=== PATIENT | male | born 1935 | race Caucasian/White ===

== ENCOUNTER 2017-05-13 18:30 | Inpatient (IN) | payer MEDICARE, OTHER ==
[~2017-05-13] VITALS: Ht 175.3 cm; Wt 71.9 kg
[~2017-05-13 18:30] MED LIST: ALFU10TA PO; AMIT75TA2 PO; DUTA0.5C2 PO; GABA100C PO; TOLT2CAP PO
[2017-05-13 18:41] VITALS: BP 122/54; PULSE 85; RESP 16; O2SAT 97
--- NOTE | 2017-05-13 18:41 | ED.REPORT ---
HPI-General Illness Date of Service May 13, 2017 ED Provider: Dr. Chad Camp The patient is a 82 year old male with a hx of dementia and frequent falls on Coumadin for pulmonary emboli who presents to the ED via EMS with bruising on his right chest. The patient's called EMS after waking up and noticing diffuse bruising and open sores on the pt's chest. His states that she is unsure if the pt fell. Pt is a poor historian and unable to give ROS or hx. Nursing Notes Stated Complaint: BRUISING,OPEN SORES Nursing Notes Reviewed: Yes Allergies: Coded Allergies: No Known Allergies (Verified , 06/07/14) Scheduled Alfuzosin ER (Uroxatral) 10 Mg Tab.sr.24h 10 MG PO DAILY Amitriptyline (Amitriptyline) 75 Mg Tablet 75 MG PO HS Gabapentin (Neurontin) 100 Mg Capsule 100 MG PO PM Tolterodine Tartrate ER (Detrol LA) 2 Mg Capsule 2 MG PO DAILY Scheduled PRN Dutasteride (Avodart) 0.5 Mg Capsule 0.5 MG PO DAILY PRN PRN prn General Time Seen by MD: 18:40 Chief Complaint Other (bruising) Hx Obtained From: EMS Arrived By: Ambulance Sudden in Onset?: Yes Onset Occurred: Yesterday Symptom Duration: Since onset Location: : Chest Quality: Painful Recent Healthcare: No recent doctor visit, No recent hospitalization Similar Sx Previous: No Past Medical History Past Medical History Recurrent, acute pulmonary embolus. Chronic atrial fibrillation. Labile hypertension. Progressive dementia. Prostatism. DNR/DNI. Past Surgical History right eye surgery (glaucoma) Reports: Inguinal hernia repair Smoking History Former Smoker Social History Alcohol Use: Denies alcohol use Drug Use: Denies drug use Other Social History: , Local resident Ambulatory Status Independent Review of Systems Unable to Obtain ROS Patient condition Physical Exam Vital Signs Vital Signs Date Time Temp Pulse Resp B/P Pulse Ox O2 Delivery O2 Flow Rate FiO2 05/13/17 21:24 36.5 79 18 160/74 98 Room Air 05/13/17 20:06 78 20 154/63 98 Room Air 05/13/17 18:41 36.8 85 16 122/54 97 Room Air Initial VS: Reviewed General/Constitutional: Awake, Alert confused as to why he is here Head / Eyes: Atraumatic, Normocephalic ENT: Atraumatic, Mucous membranes moist Diminished Breath Sounds: Positive: Decreased bilateral Cardiovascular: Heart rate NL, Regular rhythm Upper Extremities Upper Extremity / MS: Atraumatic, Inspection NL, Full range of motion, No deformity no signs of trauma Wrist / Hand: Atraumatic, Full range of motion, No deformity Lower Extremity / Pelvis / MS: Atraumatic, Inspection NL, Full range of motion , No deformity no signs of trauma Ankle / Foot: Atraumatic, Full range of motion, No deformity Color / Condition: Positive: Lesion present... Rash / Lesion Notes: ecchymosis 10 by 10 skin peeling, erythema of chest wall that is warm to touch Rash / Lesion Location: Positive: Chest Interpretation & Diagnostics Lab Results Interpretation Result Diagram: 05/13/175 05/13/175 Test 05/13/17 18:55 05/13/17 20:00 White Blood Count 7.6th/mm3 (3.8-10.1) Red Blood Count 5.05mil/mm3 (4.40-5.80) Hemoglobin 14.9g/dL (13.8-17.2) Hematocrit 43.9% (41.0-50.0) Mean Corpuscular Volume 86.9fL (81-100) Mean Corpuscular Hemoglobin 29.5pg (27.0-35.0) Mean Corpuscular Hemoglobin Concent 33.9% (32.0-37.0) Red Cell Distribution Width 14.2% (12.3-15.4) Platelet Count 69bil/L (150-400) Neutrophils (%) (Auto) 71.9% (40-74) Lymphocytes (%) (Auto) 15.9% (14-46) Monocytes (%) (Auto) 11.1% (4-12) Eosinophils (%) (Auto) 0.5% (0-5) Basophils (%) (Auto) 0.3% (0-3) Prothrombin Time 23.9sec (8.1-12.5) Prothromb Time International Ratio 2.20ratio Sodium Level 140mEq/L (134-144) Potassium Level 3.8mEq/L (3.5-5.2) Chloride Level 102mEq/L (97-108) Carbon Dioxide Level 24mmol/L (18-29) Blood Urea Nitrogen 19mg/dL (8-27) Creatinine 1.04mg/dL (0.76-1.27) Estimat Glomerular Filtration Rate 72mL/min (>59) Glucose Level 111mg/dL (60-99) Calcium Level 9.1mg/dL (8.5-10.1) Magnesium Level 1.9mg/dL (1.6-2.6) Total Bilirubin 1.0mg/dL (0.0-1.2) Aspartate Amino Transf (AST/SGOT) 51U/L (0-50) Alanine Aminotransferase (ALT/SGPT) 18U/L (0-44) Alkaline Phosphatase 90U/L (25-160) Total Protein 6.9g/dL (6.4-8.4) Albumin 3.5g/dL (3.4-5.0) Hold Banuelos Top Tube Received (Received) Urine Color Dark yellow (YELLOW) Urine Appearance Cloudy (CLEAR,HAZY) Urine pH 6.0 (5.0-8.0) Urine Specific [place] 1.010 (1.003-1.035) Urine Protein 30mg/dL (NEG,TRACE) Urine Glucose (UA) Negativemg/dL (NEGATIVE) Urine Ketones Negativemg/dL (NEGATIVE) Urine Occult Blood Large (NEGATIVE) Urine Nitrite Positive (NEGATIVE) Urine Bilirubin Negative (NEGATIVE) Urine Urobilinogen Normalmg/dL (NORMAL) Urine Leukocyte Esterase Large (NEGATIVE) Urine RBC 11-50/hpf (0-2) Urine WBC >50/hpf (0-5) Urine Epithelial Cells Occasional/hpf (NONE-MOD) Urine Crystals Amorphous urates (NONE Urine Bacteria Moderate/hpf (NONE-FEW) Urine Hyaline Casts None/lpf (NONE) Urine Granular Casts None seen (NONE SEEN) Urine Waxy Casts None seen (NONE SEEN) Urine Red Blood Cell Casts None seen (NONE SEEN) Urine White Blood Cell Casts None seen (NONE SEEN) Urine Mucus None seen (None Seen) Urine Trichomonas None seen (NONE SEEN) Urine Yeast None (NONE SEEN) Urinalysis Comment None Urine Culture Reflexed Indicated Lab Results Interpretation: Troponin (0.083) INR: 2.2 X-Ray Chest Interpretation Chest Xray Interpretation: IMPRESSION: No acute process. Dictated by: Wm Ibarra M.D. on 05/13/2017 at 19:51 Approved by: Wm Ibarra M.D. on 05/13/2017 at 19:52 View: Portable Interpretation / Wet Read by: Interpret - Radiologist CT Head Interpretation IMPRESSION: 1. No acute process. 2. Chronic left sided infarcts. 3. Volume loss and small vessel ischemic disease. Dictated by: Wm Ibarra M.D. on 05/13/2017 at 20:53 Approved by: Wm Ibarra M.D. on 05/13/2017 at 20:54 Study: Head CT no contrast Interpretation / Wet Read by: Interpret - Radiologist CT Abd / Pelvis Interpretation IMPRESSION: 1. No acute process. 2. 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 3. No change in urinary bladder wall thickening. 4. Fecal impaction within the rectum, with moderate diffuse colonic stool. Dictated by: Wm Ibarra M.D. on 05/13/2017 at 20:55 Approved by: Wm Ibarra M.D. on 05/13/2017 at 20:59 Study type: Abdominal CT no contrast Interpretation / Wet Read by: Interpret - Radiologist Re-Eval/Medical Decision Med Decision/Clinical Course 2109: Pt rechecked. has arrived at the ED. She relays the rest of the hx. Pt was complaining of chest pain yesterday, he fell, and busted up his chest. Plan to admit for chest pain and elevated troponin (0.083) INR 2.2 Normal renal function Imaging shows no acute abnormalities Time of Eval: 21:10 Re-Evaluation/Progress Note: Pt rechecked. has arrived at the ED. She relays the rest of the hx. Pt was complaining of chest pain yesterday, he fell, and busted up his chest. Plan to admit for chest pain and elevated troponin (0.083) Consultation : Referral / Consult Name: Cheyenne Fisher DO Consulted With: Hospitalist Call Returned at: 21:20 Assistant Sales Manager: Agrees with eval, Agrees with plan Note: Case discussed. Counseled Regarding: Diagnosis, Lab results Discharge & Departure Primary Impression: Elevated troponin Additional Impressions: Frequent falls Altered mental status Altered mental status type: unspecified Qualified Code: R41.82 - Altered mental status, unspecified Disposition: ADMITTED TO HOSPITAL Discharge Condition All VS Reviewed: Yes Condition: Stable Referrals: Price Godinez MD (PCP) Jarrett Attestation Portion of this note were transcribed by Arline Zamora. I, Dr. Camp, personally performed the history, physical exam, and medical decision-making: I reviewed and confirmed the accuracy for the information in the transcribed note. Signed by: jarrett Boudreaux, 05/13/17 2200 copies to: Price Godinez MD, Todd P DO May 13, 2017 18:41 Arline Zamora May 13, 2017 18:44 copies to: Price Godinez MD, Todd P DO May 13, 2017 18:41 Arline Zamora May 13, 2017 18:44
[2017-05-13 19:21] LABS: BASOPHILS % (AUTO) 0.3 % (0-3); EOSINOPHILS % (AUTO) 0.5 % (0-5); MONOCYTES % (AUTO) 11.1 % (4-12); Mean Corpuscular Hemoglobin 29.5 pg (27.0-35.0); Mean Corpuscular Volume 86.9 fL (81-100); NEUTROPHILS % (AUTO) 71.9 % (40-74); Platelet Count 69 bil/L (150-400)
[2017-05-13 19:45] LABS: INR 2.2 ratio
--- NOTE | 2017-05-13 19:53 | DRSVH ---
PROCEDURE: X-RAY CHEST ONE VIEW, PORTABLE ([id number]) INDICATIONS: SHORTNESS OF BREATH TECHNIQUE: One view of the chest was acquired. COMPARISON: [facility], CR, XR CHEST 1VW, 11/05/2015, 23:37. FINDINGS: Surgical changes and devices: None. Lungs and pleura: No pleural effusions or pneumothorax. Lungs are clear. Mediastinum: Mediastinal contours appear normal. Heart size is normal. Bones and chest wall: No suspicious bony lesions. Overlying soft tissues appear unremarkable. IMPRESSION: No acute process. Dictated by: Wm Ibarra M.D. on 05/13/2017 at 19:51 Approved by: Wm Ibarra M.D. on 05/13/2017 at 19:52
[2017-05-13 20:03] LABS: Magnesium 1.9 mg/dL (1.6-2.6); TROPONIN T 0.083 ug/L (0.0-0.011)
[2017-05-13 20:06] VITALS: BP 154/63; PULSE 78; RESP 20; O2SAT 98
[2017-05-13 20:25] LABS: APPEARANCE,URINE CLOUDY (CLEAR,HAZY)
[2017-05-13 20:26] LABS: COLOR,URINE DARK YELLOW (YELLOW); OCCULT BLOOD,URINE LARGE (NEGATIVE); UROBILINOGEN,URINE NORMAL (NORMAL)
--- NOTE | 2017-05-13 20:56 | DRSVH ---
PROCEDURE: CT BRAIN WITHOUT CONTRAST ([id number]) INDICATIONS: fall, confused, warfarin use TECHNIQUE: Noncontrast 4.5 mm thick angled axial sections acquired from the foramen magnum to the vertex, with c oronal reformats. COMPARISON: [facility], CT, CT BRAIN WO CON, 07/14/2016, 17:51. FINDINGS: Image quality: Excellent. CSF spaces: Basal cisterns are patent. No extra-axial fluid collections. The ventricles are symmet opal in size and shape. Brain: No intracranial bleeds or masses. Small chronic left basal ganglia infarct is unchanged. Sma ll chronic left thalamic infarct is unchanged. There is cerebral volume loss for age, with resultant ventricular and sulcal prominence. There are periventricular and deep white matter chronic small ves tyler ischemic changes. There is intracranial internal carotid artery atherosclerosis. Skull and face: Calvarium and visualized facial bones appear intact, without suspicious lesions. Sinuses: Left maxillary sinus retention cyst is present. Visualized sinuses and mastoids are otherwis e clear. IMPRESSION: 1. No acute process. 2. Chronic left sided infarcts. 3. Volume loss and small vessel ischemic disease. Dictated by: Wm Ibarra M.D. on 05/13/2017 at 20:53 Approved by: Wm Ibarra M.D. on 05/13/2017 at 20:54
--- NOTE | 2017-05-13 21:00 | DRSVH ---
PROCEDURE: CT ABDOMEN AND PELVIS WITH CONTRAST ([id number]) INDICATIONS: abdominal trauma TECHNIQUE: After the administration of intravenous contrast, 5 mm thick sections acquired from the diaphragm to the symphysis. 5 mm coronal and sagittal reformats were acquired. For radiation dose reduction, the following was used: automated exposure control, adjustment of mA and/or kV according to patient meryl rand. COMPARISON: [facility], CT, CT ABD PELVIS W CON TRAUMA, 08/17/2015, 14:20. FINDINGS: Image quality: Excellent. ABDOMEN: Lung bases: Lung bases are clear. Heart size is normal. Solid organs: Right hepatic lobectomy has been performed , as before. [place]den liver is within normal limits. Gallbladder is surgically absent. Biliary system is non dilated. Pancreas enhances normally . No adrenal nodules. Left kidney is within normal limits. There is a duplex right sided intrarenal and extrarenal collecting system. Severe atrophy and hydronephrosis of the inferior pole moiety is un changed. Severe ureteral dilatation of the inferior pole moiety is unchanged. Peritoneum and bowel: Large amount of rectal stool is present. Moderate diffuse stool within the ijeoma gene of the colon is present. Bowel loops demonstrate otherwise normal wall thickness and caliber. No free fluid or air. Nodes and vessels: No retroperitoneal or mesenteric adenopathy by size criteria. Aorta and inferior vena cava are normal in size. Miscellaneous: No ventral hernias. PELVIS: Genitourinary: Urinary bladder wall thickening is present, as before. Miscellaneous: No inguinal hernias or adenopathy. Bones: No suspicious bony lesions. No vertebral body compression fractures. IMPRESSION: 1. No acute process. 2. 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 3. No change in urinary bladder wall thickening. 4. Fecal impaction within the rectum, with moderate diffuse colonic stool. Dictated by: Wm Ibarra M.D. on 05/13/2017 at 20:55 Approved by: Wm Ibarra M.D. on 05/13/2017 at 20:59
[2017-05-13 21:24] VITALS: BP 160/74; PULSE 79; RESP 18; O2SAT 98
[2017-05-13] MEDS ORDERED: fentaNYL-PF 50 mCg/mL 2 mL Inj IV PRN (21:30)
[2017-05-13] MEDS ORDERED: Polyethylene Glycol (PEG) 17 Gm Powder PO PRN (21:30)
[2017-05-13] MEDS ORDERED: Ondansetron 2 mg/mL 2 mL Inj IVPUSH PRN (21:30)
[2017-05-13] MEDS ORDERED: Alum-Mag Hydrox-Simeth 30 mL Suspension PO PRN (21:30)
[2017-05-13] MEDS ORDERED: HYDROcodone-APAP 5-325 mg Tablet PO PRN (21:30)
--- NOTE | 2017-05-13 21:33 | PCM.HPMED ---
Subjective Date of Service May 13, 2017 Primary Provider: Admitting Physician: Primary Care Physician: Price Godinez MD Attending Physician: Chief Complaint: Fall History of Present Illness: West Nielsen is a 82-year-old man with severe dementia as well as history of pulmonary embolism previously on anticoagulation, atrial fibrillation, prostate cancer who presents to the [facility] emergency department today due to a fall and bruising on his chest. Patient is severely demented and unable to give history. History is obtained from the patient's as well as records reviewed. Patient's reports that the patient's grandson found the patient on the floor today and they were concerned that he had a fall. Patient's appears to be an unreliable historian as well. She reports that the patient was recently hospitalized 3 months ago at this hospital but his last hospital physician was in 2014. She reported the patient complained of right-sided abdominal pain. She also the patient has been more fatigued and more agitated last few days. She states that the patient falls daily. The patient's and the patient's grandson are not able to lift the patient when he falls down. Patient's also reports sometimes the patient sleeps on the floor. Per ED report patient stated that the patient complained of chest pain however on our interview she denied any complaints of pain. Upon review of records the patient has been struggling with dementia since at least 2013. A palliative care consultation was obtained at that time which noted that the patient had a 30-40% risk of within 6 months at that time due to his severe dementia. Patient has had recurrent falls and because of this his warfarin therapy was discontinued in June 2016. Patient however appears to be taking warfarin still. It is unclear who his PCP is at this time. 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 Adult Protective Services was contacted in the past due to the patient's frailty and his 's frailty. In The Emergency department the patient's vital signs were stable. A CT of head , abdomen, pelvis and a chest x-ray were performed which did not show any acute trauma. Patient was given a full dose of aspirin. Review of Systems: A comprehensive review of systems could not be conducted with the patient due to severe dementia. Allergies Coded Allergies: No Known Allergies (Verified , 06/07/14) Home Medications West Nielsen [id number] 07/14/2016 02:40 PM 10/29 Start Date Medication Directions Stop Date 07/14/2016 aspirin 325 mg tablet,delayed release take 1 tablet by oral route every day 06/17/2015 Detrol LA 2 mg capsule,extended release take 1 capsule by oral route every day 07/14/2016 nortriptyline 10 mg capsule take 1 capsule by oral route every bedtime 09/01/2015 Uroxatral 10 mg tablet,extended release take 1 tablet (10MG) by ORAL route every day PMH Severe dementia Pulmonary embolism Atrial fibrillation Hypertension Prostate cancer Surgical History Inguinal hernia repair Family History Per records review: Patient's mother had multiple myeloma. Patient has 5 siblings who are alive and well. Social History Hx Alcohol Use: No Hx Substance Use: No Hx Tobacco Use: Yes (chew) Smoking Status: Former Smoker Exam Vital Signs Vital Sign - Last Date Time Temp Pulse Resp B/P Pulse Ox O2 Delivery O2 Flow Rate FiO2 05/13/17 21:24 36.5 79 18 160/74 98 Room Air Exam General: No acute distress, frail chronically ill-appearing male lying in hospital bed. Appears older than stated age. HEENT: Normocephalic, atraumatic. External ears without defect. Pupils equal, round, and reactive to light and accommodation. Anicteric sclerae, moist conjunctivae, and no lid lag. Oropharynx free of erythema and cobble stoning with moist mucosa. Unkempt long hair and long kramer. Neck: Supple with full range of motion. No jugular venous distension. No lymphadenopathy or thyromegaly. Cardiovascular: Regular rate and rhythm with no murmurs, rubs, or gallops appreciated. Pulmonary: Clear to auscultation bilaterally with no crackles, wheezes, or rhonchi. Normal respiratory effort with no use of accessory muscles. Abdomen: Bowel tones present. Soft, tenderness of the right lower quadrant. No hepatosplenomegaly or masses appreciated. Extremities: No clubbing, cyanosis, edema, or lymphadenopathy appreciated. Skin: Extensive ecchymosis over the lower right chest and upper right quadrant of the abdomen. Skin tears on the right upper chest as well as abdomen. Bruising of the right hip. Neurological: Cranial nerves grossly intact. Normal muscle strength, tone, and bulk. Psychiatric: Normal mood and affect. Patient is oriented to self only. He believes that he is at home and that it is 2069. Lab and Diagnostics Result Diagram: 05/13/[id number]/[id number]/171854 X-Rays, CTs and MRIs X-RAY CHEST ONE VIEW, PORTABLE IMPRESSION: No acute process. Dictated by: Wm Ibarra M.D. on 05/13/2017 at 19:51 CT BRAIN WITHOUT CONTRAST IMPRESSION: 1. No acute process. 2. Chronic left sided infarcts. 3. Volume loss and small vessel ischemic disease. Dictated by: Wm Ibarra M.D. on 05/13/2017 at 20:53 CT ABDOMEN AND PELVIS WITH CONTRAST IMPRESSION: 1. No acute process. 2. 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 3. No change in urinary bladder wall thickening. 4. Fecal impaction within the rectum, with moderate diffuse colonic stool. Dictated by: Wm Ibarra M.D. on 05/13/2017 at 20:55 Assessment & Plan West Nielsen is a 82-year-old man with severe dementia as well as history of pulmonary embolism previously on anticoagulation, atrial fibrillation, prostate cancer who presents to the [facility] emergency department today due to a fall and bruising on his chest. Elevated troponin of uncertain significance, present on admission, active -Likely secondary to chest trauma, but patient is difficult historian. -We will continue to trend troponin. EKG when necessary pain. -Telemetry monitoring -Echocardiogram in a.m. -We will hold off on heparin drip given patient's large chest hematoma and therapeutic INR (no reversal at this time). -Patient would unlikely be a candidate for PCI due to his underlying dementia and coronary disease. -We will proceed with maximal medical management. -We will continue with daily aspirin, will initiate statin, will initiate beta dianne. -We will hold off on Plavix Urinary tract infection, present on admission, active -UA shows greater than 50 WBCs. -Microbiology review of past records does not note any resistant organisms. Patient does not have risk factor for ESBL. -We will be treating with ceftriaxone. -Urine culture blood culture pending. Ground-level fall with extensive ecchymosis and skin tears, present on admission , active -Fall precaution -Likely due to underlying dementia in combination with patient's urinary tract infection. -PT evaluation -Holding warfarin Severe dementia, present on admission, active -Records review indicates that the patient has been struggling with severe dementia for many years. -In 2013 palliative care was consulted at that time believed that the patient has such severe dementia and that his risk of in the next 6 months with 30 -40% -We will consult palliative care team again. Day team to contact. -Social work consult as well. Patient and patient's live alone. Patient' s is also quite frail and the patient's PCP had concern over the 's ability to adequately care for the patient. -Speech therapy eval Paroxysmal Atrial fibrillation, present on admission, active -Hold warfarin Fecal impaction within the rectum, with moderate diffuse colonic stool -Bowel regiment. Consider magnesium citrate provided patient is safe to swallow thins. Chronic severe hydronephrosis MEDICATION RECONCILIATION NOT COMPLETED PATIENT IS NOT AWARE. DAY TEAM TO ASK TO BRING IN PATIENT'S MEDICATIONS FROM HOME. CODE STATUS: DNR/DNI Patient is admitted under inpatient status with expected length of stay greater than 2 midnights due to severity of presenting symptoms, risk of adverse event, and complexity of treatment plan. VTE Prophylaxis: Theraputic Anticoag with Warfarin Resuscitation Status: DNR/DNI:Do Not Resuscitate/Intubate Attending Statement The patient was seen and examined together with house staff on 05/13/2017 and I agree with the history, exam and plan as outlined in the note above. Danay Crouch DO May 13, 2017 21:33 Cheyenne Fisher DO May 14, 2017 04:32
[2017-05-13 22:27] VITALS: BP 159/89; PULSE 73; RESP 18; O2SAT 97
[2017-05-13 22:40] VITALS: PULSE 73
[2017-05-13] MEDS: cefTRIAXone Inj 2,000 MG in Dextrose 5% Minibag Plus 50 ML IV SCH (23:10)
[2017-05-14] VITALS (7 sets, daily range): BP systolic 114–166; BP diastolic 70–84; PULSE 66–79; RESP 16–18; O2SAT 93–98
[2017-05-14 00:50] LABS: TROPONIN T 0.07 ug/L (0.0-0.011)
--- NOTE | 2017-05-14 04:14 | NUR ---
NOC/Admit pt arrived on the floor. Alert and oriented to self. Conversational but is very forgetful. Pt have a bruise/hematoma on martina-lateral area of thorax. Left hip bruise. No trauma noted upon assessment to the head. VSS and has been afebrile overnight. Denies chest pain, sob, n/v. Reports of constipation.
[2017-05-14 05:39] LABS: BASOPHILS % (AUTO) 0.5 % (0-3); EOSINOPHILS % (AUTO) 2.9 % (0-5); MONOCYTES % (AUTO) 10.4 % (4-12); Mean Corpuscular Volume 87.1 fL (81-100); NEUTROPHILS % (AUTO) 67.1 % (40-74); Platelet Count 53 bil/L (150-400)
[2017-05-14 06:01] LABS: INR 2.23 ratio
[2017-05-14 06:26] LABS: TROPONIN T 0.047 ug/L (0.0-0.011)
[2017-05-14] MEDS ORDERED: WARF2.5T82 PO (10:39)
[2017-05-14] MEDS ORDERED: DOCU240C41 PO (10:39)
[2017-05-14] MEDS ORDERED: WARF5TAB7 PO (10:40)
--- NOTE | 2017-05-14 10:44 | NUR ---
Palliative Care Palliative Care received order from Dr Crouch 05/13/17 to assist with goals of care. Patient admitted 05/13/17. He has dementia and lives home with . PC saw patient several times in 2013. Essie Nielsen () [phone] Alfredo Nielsen (daughter) [phone] Palliative Care to follow. Katy Morley
--- NOTE | 2017-05-14 11:49 | NUR ---
Evaluation completed. Please go to "Notes" then click on "Assessments and Notes" (bottom left corner of screen). Then select appropriate discipline tab on top of screen.
--- NOTE | 2017-05-14 13:34 | NUR ---
ARMHOLE RAISER LOCKSTITCH consult received. Pt politely declined evaluation and PO intake today. Per pt's , pt has not been choking or coughing with PO intake recently. ARMHOLE RAISER LOCKSTITCH will follow and attempt evaluation tomorrow. Discussed with RN.
[2017-05-14] MEDS: Tolterodine ER 2 mg ER24 Capsule PO SCH (14:03)
[2017-05-14] MEDS: 0.9% Sodium Chloride 1,000 ML IV SCH (14:41)
--- NOTE | 2017-05-14 16:03 | NUR ---
Social Work-initial assessment/ multidisciplinary rounds: Data:See initial assessment. Pt is a 82 y/o male who was admitted on 05/13/17 for chest pain per H&P. Pt's insurance is [employer] and [employer] and PCP is Price Godinez MD. EMR reviewed. SABA met with pt and Essie at bedside, SW role explained. Pt resides at home with and daughter who provide care. Pt uses a fww at baseline and does not drive. Pt has history at [facility] and has had [facility] in the past. Pt has no terminal system operator care insurance or VA benefits. SW discussed DPOA/ advanced directive, confirms this has been completed. PT worked with pt and they are recommending SNF. MD order received. SW provided SNF choice list, would like to think about this and have SW check back in. would like to hire extra help at home, SW provided her with caregiver resources, private pay. SW made APS report due to concerns from MD about pt falling and laying on the ground for hours and sleeping. confirms it has been challenging to get pt off the ground when he does fall. SW provided discharge planning checklist and encouraged any questions from the to call. SW provided phone number on white board. SW will continue to follow. Assessment:pt who would benefit from SNF. Plan:SW to follow up with pt and again tomorrow regarding SNF. SNF choice list provided.SW will continue to follow. CANDICE Wayne Addendum: 05/14/17 at 1607 by USMAN CROWLEY Amended: Links added.
--- NOTE | 2017-05-14 16:07 | NUR ---
SNF choice list provided. CANDICE Wayne
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
--- NOTE | 2017-05-14 18:17 | NUR ---
Activity Pt. ambulated using FWW from bed to sofa this afternoon with 1pa. Pt. is noted to have a slight unsteadiness when he walks and arches his back backwards when he stands. Pt. states "the floor feels like its not leveled." Pt. has been cooperative throughout shift and states he feels pain only when someone palpates his right anterior lateral bruise. Will continue to monitor.
--- NOTE | 2017-05-14 23:16 | PCM.PNMED ---
Subjective Date of Service May 14, 2017 Subjective The patient has no specific complaints. However however, he has pain in his right chest and right abdomen with any movement. Exam Vital Signs Vital Sign - Last Date Time Temp Pulse Resp B/P Pulse Ox O2 Delivery O2 Flow Rate FiO2 05/14/17 20:21 36.5 79 18 166/70 98 Room Air Intake and Output 05/13/17 05/13/17 05/14/17 Cumulative From/Thru 15:00 23:00 07:00 05/13/17 18:41 - 05/14/17 06:26 Intake Total 270 ml 270 ml Output Total 200 ml 0 ml 200 ml Balance -200 ml 270 ml 70 ml Intake Oral 200 ml 200 ml IV Total 70 ml 70 ml Output Urine Total 200 ml 0 ml 200 ml # Voids 1 1 Exam General: Patient is resting comfortably in bed at rest but has pain in his right side with movement. HEENT: Head is atraumatic and normocephalic. Eyes: Pupils are equally round and reactive to light and accommodation. Extraocular muscles are intact. Sclera are white, anicteric. Subconjunctival mucosa is pink. Ears and nose are unremarkable. Oropharynx: There is no mucosal lesions, there is no thrush, there is no pharyngitis. Oral mucosa is dry. Neck: Is supple, there are no nodes, or masses or tenderness. Chest: Is clear to auscultation and percussion. There are no rales, rhonchi, wheezes or rubs. There are coarse breath sounds. There is a large area of ecchymosis in the area of the right lower rib cage. Heart: Rate, rhythm is regular. There is no murmur, rub or gallop. Abdomen: Good bowel sounds are present. Abdomen is soft, with tenderness on the right side in the right upper quadrant and right lower quadrant. This tenderness is nonspecific and there is no rebound tenderness or guarding. There is no organomegaly or masses were appreciated. Extremities: Are symmetrical and well perfused. There is no edema, there is no cellulitis, no rash. There is a large ecchymosis over the right hip area. Also , there is an abrasion on the right knee. Neurologic: There are no focal neurological deficits. Cranial nerves II through XII are intact. There are no sensory or motor deficits. Psychiatric: Patients mood is calm and shows no sign of agitation at this time. Genital: Deferred Rectal: Deferred Lab and Diagnostics Result Diagram: 05/14/17 0505 05/14/17 0505 Microbiology Blood and urine cultures are pending. X-Rays, CTs and MRIs X-RAY CHEST ONE VIEW, PORTABLE IMPRESSION: No acute process. Dictated by: Wm Ibarra M.D. on 05/13/2017 at 19:51 CT BRAIN WITHOUT CONTRAST IMPRESSION: 1. No acute process. 2. Chronic left sided infarcts. 3. Volume loss and small vessel ischemic disease. Dictated by: Wm Ibarra M.D. on 05/13/2017 at 20:53 CT ABDOMEN AND PELVIS WITH CONTRAST IMPRESSION: 1. No acute process. 2. 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 3. No change in urinary bladder wall thickening. 4. Fecal impaction within the rectum, with moderate diffuse colonic stool. Dictated by: Wm Ibarra M.D. on 05/13/2017 at 20:55 12-lead ECG EKG shows normal sinus rhythm. Assessment & Plan West Nielsen is a 82-year-old man with severe dementia as well as history of pulmonary embolism previously on anticoagulation, atrial fibrillation, prostate cancer who presents to the [facility] emergency department today due to a fall and bruising on his chest. Elevated troponin of uncertain significance, present on admission, active -Likely secondary to chest trauma, but patient is difficult historian. -We will continue to trend troponin. We will check another troponin in a.m. EKG when necessary pain. -We will continue Telemetry monitoring -Echocardiogram in a.m. is still pending -We will hold off on heparin drip given patient's large chest hematoma and therapeutic INR (no reversal at this time). -Patient would unlikely be a candidate for PCI due to his underlying dementia and coronary disease. -We will proceed with maximal medical management. -We will continue with daily aspirin, will initiate statin, will initiate beta dianne. -We will hold off on Plavix Urinary tract infection, present on admission, active -UA shows greater than 50 WBCs. -Microbiology review of past records does not note any resistant organisms. Patient does not have risk factor for ESBL. -We will be treating with ceftriaxone. -We will check Urine culture and blood culture still pending. Ground-level fall with extensive ecchymosis and skin tears and Rhabdomyolysis, present on admission, active - Start IV fluids to preserve renal function due to rhabdomyolysis and repeat CPK in a.m. -Fall precaution -Likely due to underlying dementia in combination with patient's urinary tract infection. -PT evaluation -We will continue holding warfarin - The patient's states that the patient was left on the metal mattress frame for over 24 hours as known in the family could move him. It was not until the grandson noticed that he had a large bruise on his chest that they called 911. Severe dementia, present on admission, active -Records review indicates that the patient has been struggling with severe dementia for many years. -In 2013 palliative care was consulted at that time believed that the patient has such severe dementia and that his risk of in the next 6 months with 30 -40% -We will consult palliative care team again. Day team to contact. -Social work consult as well. Patient and patient's live alone. Patient' s is also quite frail and the patient's PCP had concern over the 's ability to adequately care for the patient. -Speech therapy eval Paroxysmal Atrial fibrillation, present on admission, active -Hold warfarin Fecal impaction within the rectum, with moderate diffuse colonic stool -Bowel regiment. Consider magnesium citrate provided patient is safe to swallow thins. Chronic severe hydronephrosis - Consider urology evaluation Debility - We will consult physical therapy and occupational therapy - Difficulty chewing and swallowing - We will consult speech therapy. Disposition: The patient will be air another 48-72 hours for further evaluation and treatment of the above conditions. Pain Evaluation: Adequate Pain Control VTE Prophylaxis: Theraputic Anticoag with Warfarin Resuscitation Status: DNR/DNI:Do Not Resuscitate/Intubate Maxx Tobar MD May 14, 2017 23:15 -Urine culture blood culture pending. Ground-level fall with extensive ecchymosis and skin tears, present on admission , active -Fall precaution -Likely due to underlying dementia in combination with patient's urinary tract infection. -PT evaluation -Holding warfarin Severe dementia, present on admission, active -Records review indicates that the patient has been struggling with severe dementia for many years. -In 2013 palliative care was consulted at that time believed that the patient has such severe dementia and that his risk of in the next 6 months with 30 -40% -We will consult palliative care team again. Day team to contact. -Social work consult as well. Patient and patient's live alone. Patient' s is also quite frail and the patient's PCP had concern over the 's ability to adequately care for the patient. -Speech therapy eval Paroxysmal Atrial fibrillation, present on admission, active -Hold warfarin Fecal impaction within the rectum, with moderate diffuse colonic stool -Bowel regiment. Consider magnesium citrate provided patient is safe to swallow thins. Chronic severe hydronephrosis MEDICATION RECONCILIATION NOT COMPLETED PATIENT IS NOT AWARE. DAY TEAM TO ASK TO BRING IN PATIENT'S MEDICATIONS FROM HOME. CODE STATUS: DNR/DNI Patient is admitted under inpatient status with expected length of stay greater than 2 midnights due to severity of presenting symptoms, risk of adverse event, and complexity of treatment plan. VTE Prophylaxis: Theraputic Anticoag with Warfarin Resuscitation Status: DNR/DNI:Do Not Resuscitate/Intubate Maxx Tobar MD May 14, 2017 23:15
[2017-05-14] MEDS: cefTRIAXone Inj 2,000 MG in Dextrose 5% Minibag Plus 50 ML IV SCH (23:23)
[2017-05-15] VITALS (7 sets, daily range): BP systolic 112–156; BP diastolic 65–88; PULSE 61–77; RESP 16–18; O2SAT 95–98
--- NOTE | 2017-05-15 04:28 | NUR ---
Noc activity Pt has been alert and oriented to self. Frequent re-orientation to present situation provided. Pt verbalizes understanding. Reports of feeling nauseated. Administered zofran. No complains after. Pt reports of chest pain only when moving. No sob, and abd discomfort. Plan of care explained to pt. HS medication administered as scheduled. VSS and has been afebrile overnight. Telemetry monitoring noted SR 69. Will continue to monitor. Addendum: 05/15/17 at 0518 by DARRELL MOHAN RN 0515 Pt was agitated when awaken by the Waste Picker for blood draw. Pt does not seem to know that he's in the hospital. Provide low stimulus at the moment and continuing to monitor mentation.
[2017-05-15] MEDS: 0.9% Sodium Chloride 1,000 ML IV SCH ×2 (04:35→14:39)
[2017-05-15] MEDS: Tolterodine ER 2 mg ER24 Capsule PO SCH (08:42)
[2017-05-15 08:47] LABS: TROPONIN T 0.046 ug/L (0.0-0.011)
[2017-05-15 09:32] LABS: BASOPHILS % (AUTO) 0.7 % (0-3); EOSINOPHILS % (AUTO) 5.7 % (0-5); MONOCYTES % (AUTO) 11.9 % (4-12); Mean Corpuscular Hemoglobin 29.3 pg (27.0-35.0); Mean Corpuscular Volume 88.8 fL (81-100); NEUTROPHILS % (AUTO) 61.5 % (40-74)
--- NOTE | 2017-05-15 12:15 | NUR ---
SABA received a call from Wong with APS intake, who informed SABA that [facility] vice investigator that has been assigned to the case is Laurita Piper [phone]. CANDICE Wayne
--- NOTE | 2017-05-15 14:05 | PCM.PALLBR ---
Palliative Brief Note Date of Service May 15, 2017 . Patient's refuses to see or talk with Palliative team- she remains fearful/ distrustful that team "is trying to kill him". We will sign off at this time- please let us know if situation or needs change. Mu Souza MD May 15, 2017 14:05
--- NOTE | 2017-05-15 14:19 | NUR ---
Social Work-continued d/c planning/ multidisciplinary rounds: Data:EMR reviewed. Pt is on day 2 of hospitalization for chest pain per H&P. Pt is not medically stable anticipate several more days. PT continues to see pt and recommend SNF. SW followed up with pt and at bedside, SW role explained. SW explained continued recommendation of SNF placement. states she is not sure if this is what they want. states they did not have a good experience at [facility] and if they did chose to go to SNF, she would prefer to go to a different facility, SNF choice list has been provided. states she will go ahead and tour a few different facilities and would like SW to check back in again tomorrow. SW to follow up with pt and again tomorrow regarding SNF choice. SW will continue to follow. Assessment:Pt who would benefit from SNF. Plan:SW to follow up again with pt and again tomorrow regarding SNF. to tour facilities, SNF choice list has been provided. SW will continue to follow. CANDICE aWyne
--- NOTE | 2017-05-15 15:09 | DRSVH ---
[facility] [address] [place] [address] Echocardiogram Report Name: MARLINE CALLES EStudy Date : 05/15/2017 Height: 69 in Hospital Exam Location: [facility] Weight: 159 lb Gender: Male BSA: 1.9 m2 : 1935 Age: 82 yrs BP: 129/68 mmHg Reason For Study: ELEVATED TROPONIN Ordering Physician: Gaudencio Morales Performed By: Beto Taylor Referring Physician: Dr. Venecia Godinez Interpretation Summary The ejection fraction is estimated to be 60-65%. There are no focal wall motion abnormalities. There is no significant valvular heart disease. Procedure: A two-dimensional transthoracic echocardiogram with color flow and Doppler was performed. The study quality was technically good. There is no prior echocardiogram noted for this patient. The subcostal views were not obtained due to a large deep bruise on the subcostal window. The patient was in normal sinus rhythm during the exam. Left Ventricle: The left ventricle is normal in size. There is normal left ventricular wall thickness. The ejection fraction is estimated to be 60-65%. There are no focal wall motion abnormalities. Right Ventricle: Borderline right ventricular enlargement. The right ventricular systolic function is normal. Atria: Both atria are normal in size. The interatrial septum is intact with no evidence for an atrial septal defect. Mitral Valve: The mitral valve is normal in structure and function. There is mild mitral annular calcification. There is trace mitral regurgitation. Aortic Valve: The aortic valve is normal in structure and function. The aortic valve is trileaflet. The aortic valve opens well. No aortic regurgitation is present. Tricuspid Valve: The tricuspid valve is normal in structure and function. There is mild tricuspid regurgitation. Right ventricular systolic pressure is estimated to be 22 mmHg plus the clinically estimated CVP which cannot be estimated on this exam. Pulmonic Valve: The pulmonic valve is normal in structure and function. There is trace pulmonic regurgitation. Great Vessels: The aortic root is normal size. The ascending aorta is mildly enlarged. The pulmonary artery is normal size. The IVC is of normal diameter and collapses greater than 50% with a sniff. This suggests a low right atrial pressure of 3 mm Hg. Pericardium/ Pleura There is no pericardial effusion. There is no pleural effusion. MMode/2D Measurements & Calculations LVIDd: 4.6 cm LA dimension: 3.1 cm RA long axis Ao root diam LVIDs: 3.1 cm FS: 32.6 % LA A2 area: 16.9 cm RA area Aortic Jxn EPSS: 0.52 cm LA A4 area: 18.7 cm IVSd: 1.0 cm LA length (vol): 5.6 cm : 12.6 cm asc Aorta LVPWd: 1.1 cm LA vol: 47.6 ml RA vol: 31.5 mlDiam: 3.8 cm LA vol index RA : 16.8 mm2 : 25.4 ml/m2 LV harris. diameter/BSA LV sys. diameter/BSA (cm/m^2): 2.4 (cm/m^2): 1.6 Doppler Measurements & Calculations Ao V2 max MV E max tomás MV E/A: 0.83 TR max tomás : 130.0 cm/sec : 85.2 cm/sec Med Peak E' Tomás : 236.7 cm/sec Ao max PG MV A max tomás TR max PG : 6.8 mmHg : 103.1 cm/sec E/E' med: 14.2 : 22.4 mmHg Ao mean PG Lat Peak E' Tomás PA V2 max : 3.3 mmHg : 68.0 cm/sec E/E' lat: 10.6 PA mean PG E/e' average: 12.4 PA Accel Time : 0.09 sec MV dec time Ao V2 mean PA V2 mean : 0.20 sec : 85.3 cm/sec : 52.3 cm/sec Ao V2 VTI: 25.1 cm PA pr(Accel) : 34.1 mmHg Electronically signed by: Chadwick Ramirez on Reading Physician:05/15/2017 03:08 PM
--- NOTE | 2017-05-15 17:28 | PCM.HPSURG ---
Subjective Date of Service: May 15, 2017 Referring Provider: Admitting Physician: Cheyenne Fisher DO Primary Care Physician: Price Godinez MD Attending Physician: Maxx Tobar MD Chief Complaint urology consult for hydronephrosis History of Present Illness West Nielsen is a 82-year-old man with severe dementia as well as history of pulmonary embolism previously on anticoagulation, atrial fibrillation, prostate cancer who presents to the [facility] emergency department due to a fall and bruising on his chest. 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 Allergy Allergies: Coded Allergies: No Known Allergies (Verified , 06/07/14) Social History Hx Alcohol Use: No Hx Substance Use: No Hx Tobacco Use: Yes (chew) PMH HEENT History History of ENT Problems?: No Cardiovascular History History of Heart Problems?: Yes Cardiovascular History: Positive for:: Atrial Fibrillation Irregular Heartbeat (atrial fibrillation) Respiratory History of Respiratory Problem: Yes Neurological History Hx Neurologic Problems?: Yes Neurological History: Positive for:: Alzheimer's Disease Dementia Dizziness Headaches Gastrointestinal History HX of GI Problems?: Yes Gastrointestinal History: Positive for:: Diverticulitis Genitourinary History Hx of Gu Problems?: Yes Female/Male History Reproductive History Male: Positive for: Prostate Problems (prostate ca with radiation) Musculoskeletal History Hx Musculoskeletal Problems?: Yes Musculoskeletal History: Positive for:: Back Injury (surgery on back) Psycho Social History Hx of Psycho/Social Problems?: Yes Psycho Social History: Positive for:: Hx Depression Other History Hx Any Other Health Problems?: Yes Other History: Positive for:: Cancer (prostate) Hospitalization (here 3 x this year) Diabetes: No Social History Hx Alcohol Use: NoHx Substance Use: NoHx Tobacco Use: Yes (chew) Smoking Status: Former Smoker Review of Systems Constitutional: Reports: Fever, Denies: Malaise, Other, Sweats, Weakness Genitourinary: Denies: Change in Frequency, Incontinence, Other, Retention H&P Surgical Exam Exam General: Alert, No Acute Distress Neck: Supple Abdomen: Benign, Soft Extremities: Warm Neuro: Cranial Nerves 2-12 nl, Normal Speech, Other (calm, alert, no agitation at this time) Catheters: None Lab & Micro Results: Final culture mixed urogenital gisella Diagnostics: CT abdomen and pelvis without contrast 1. No acute process. 2. 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 3. No change in urinary bladder wall thickening. 4. Fecal impaction within the rectum, with moderate diffuse colonic stool. Assessment & Plan Assessment Duplicate RIGHT renal collecting system- hydronephrosis and ureteral dilatation of the inferior pole moiety. VTE Prophylaxis: Theraputic Anticoag with Warfarin Plan: Discussed duplicate collecting system, hydronephrosis and ureteral dilatation with patient and his . We discussed that findings are not acute in onset and imaging shows they are unchanged and stable. We discussed that renal function otherwise is stable and there is no indication for intervention at this time, but can be managed as an outpatient. Once patient is discharged he can follow up in our office within 1-2 weeks after discharge. Urine culture showed mixed gisella, discussed that will likely obtain another urine sample and send for culture. Urology appreciates the consultation, and looks forward to managing patient's care as an outpatient. ADDENDUM by Shea Velazquez MD: Mr Nielsen has follow up appt set with mt at 1 PM, check in at 12:45 PM. Resuscitation Status: DNR/DNI:Do Not Resuscitate/Intubate Tennille Robert PA-C May 15, 2017 17:28 Shea Velazquez MD May 16, 2017 15:25 Hx Alcohol Use: NoHx Substance Use: NoHx Tobacco Use: Yes (chew) Smoking Status: Former Smoker Review of Systems Constitutional: Reports: Fever, Denies: Malaise, Other, Sweats, Weakness Genitourinary: Denies: Change in Frequency, Incontinence, Other, Retention H&P Surgical Exam Exam General: Alert, No Acute Distress Neck: Supple Abdomen: Benign, Soft Extremities: Warm Neuro: Cranial Nerves 2-12 nl, Normal Speech, Other (calm, alert, no agitation at this time) Catheters: None Lab & Micro Results: Final culture mixed urogenital gisella Diagnostics: CT abdomen and pelvis without contrast 1. No acute process. 2. 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 3. No change in urinary bladder wall thickening. 4. Fecal impaction within the rectum, with moderate diffuse colonic stool. Assessment & Plan Assessment Duplicate RIGHT renal collecting system- hydronephrosis and ureteral dilatation of the inferior pole moiety. VTE Prophylaxis: Theraputic Anticoag with Warfarin Plan: Discussed duplicate collecting system, hydronephrosis and ureteral dilatation with patient and his . We discussed that findings are not acute in onset and imaging shows they are unchanged and stable. We discussed this finding is likely associated with urinary tract infections. We discussed that renal function otherwise is stable and there is no indication for intervention at this time, but can be managed as an outpatient. Once patient is discharged he can follow up in our office withing 1-2 weeks after discharge. Urine culture showed mixed gisella, discussed that will likely obtain another urine sample and send for culture. Urology appreciates the consultation, and looks forward to managing patient's care as an outpatient. . Resuscitation Status: DNR/DNI:Do Not Resuscitate/Intubate Tennille Robert PA-C May 15, 2017 17:28 Psycho Social History: Positive for:: Hx Depression Denies:: Suicide Attempt Other History Hx Any Other Health Problems?: No Other History: Positive for:: Cancer (prostate) Hospitalization (here 3 x this year) Denies:: Endocrine Disease Thyroid Disease Diabetes: No Social History Hx Alcohol Use: NoHx Substance Use: NoHx Tobacco Use: Yes (chew) Smoking Status: Former Smoker Review of Systems Constitutional: Reports: Fever, Denies: Malaise, Other, Sweats, Weakness Genitourinary: Denies: Change in Frequency, Incontinence, Other, Retention H&P Surgical Exam Exam General: Alert, No Acute Distress Neck: Supple Abdomen: Benign, Soft Extremities: Warm Neuro: Cranial Nerves 2-12 nl, Normal Speech, Other (calm, alert, no agitation at this time) Catheters: None Lab & Micro Results: Final culture mixed urogenital gisella Diagnostics: CT abdomen and pelvis without contrast 1. No acute process. 2. 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 3. No change in urinary bladder wall thickening. 4. Fecal impaction within the rectum, with moderate diffuse colonic stool. Assessment & Plan Assessment Duplicate RIGHT renal collecting system- hydronephrosis and ureteral dilatation of the inferior pole moiety. VTE Prophylaxis: Theraputic Anticoag with Warfarin Plan: Discussed duplicate collecting system, hydronephrosis and ureteral dilatation with patient and his . We discussed that findings are not acute in onset and imaging shows they are unchanged and stable. We discussed this finding is likely associated with urinary tract infections. We discussed that renal function otherwise is stable and there is no indication for intervention at this time, but can be managed as an outpatient. Once patient is discharged he can follow up in our office withing 1-2 weeks after discharge. Urine culture showed mixed gisella, discussed that will likely obtain another urine sample and send for culture. Urology appreciates the consultation, and looks forward to managing patient's care as an outpatient. . Resuscitation Status: DNR/DNI:Do Not Resuscitate/Intubate Tennille Robert PA-C May 15, 2017 17:28
--- NOTE | 2017-05-15 22:36 | PCM.PNMED ---
Subjective Date of Service May 15, 2017 Subjective The patient is quite somnolent today. He periodically wakes up when discussion between his and I introduced him. He has no specific complaints. He is having less pain. Exam Vital Signs Vital Sign - Last Date Time Temp Pulse Resp B/P Pulse Ox O2 Delivery O2 Flow Rate FiO2 05/15/17 19:53 37.1 76 16 152/76 95 Room Air Intake and Output 05/14/17 05/14/17 05/15/17 Cumulative From/Thru 15:00 23:00 07:00 05/13/17 18:41 - 05/15/17 06:04 Intake Total 418 ml 1216 ml 1904 ml Output Total 50 ml 250 ml Balance 368 ml 1216 ml 1654 ml Intake Oral 418 ml 618 ml IV Total 1216 ml 1286 ml Output Urine Total 50 ml 250 ml # Voids 2 3 # Bowel Movements 2 2 Exam General: Patient is resting comfortably and is in no distress. He appears more comfortable today than yesterday. Patient is quite somnolent but awakens when the discussion around him interest him. HEENT: Head is atraumatic and normocephalic. Eyes: Pupils are equally round and reactive to light and accommodation. Extraocular muscles are intact. Sclera are white, anicteric. Subconjunctival mucosa is pink. Ears and nose are unremarkable. Oropharynx: There is no mucosal lesions, there is no thrush, there is no pharyngitis. Oral mucosa is dry. Neck: Is supple, there are no nodes, or masses or tenderness. Chest: Is clear to auscultation and percussion. There are no rales, rhonchi, wheezes or rubs. There are coarse breath sounds. The area of ecchymosis in the area of the right lower rib cage appears improved. Heart: Rate, rhythm is regular. There is no murmur, rub or gallop. Abdomen: Good bowel sounds are present. Abdomen is soft, with less tenderness on the right side in the right upper quadrant and right lower quadrant than yesterday. This tenderness is nonspecific and there is no rebound tenderness or guarding. There is no organomegaly or masses were appreciated. Extremities: Are symmetrical and well perfused. There is no edema, there is no cellulitis, no rash. There is a large ecchymosis over the right hip area. Also , there is an abrasion on the right knee. Neurologic: There are no focal neurological deficits. Cranial nerves II through XII are intact. There are no sensory or motor deficits. The patient is quite somnolent today. Psychiatric: Patients mood is calm and shows no sign of agitation at this time. Genital: Deferred Rectal: Deferred Lab and Diagnostics Result Diagram: 05/15/17 0715 05/15/17 0715 Microbiology Blood and urine cultures are pending. X-Rays, CTs and MRIs X-RAY CHEST ONE VIEW, PORTABLE IMPRESSION: No acute process. Dictated by: Wm Ibarra M.D. on 05/13/2017 at 19:51 CT BRAIN WITHOUT CONTRAST IMPRESSION: 1. No acute process. 2. Chronic left sided infarcts. 3. Volume loss and small vessel ischemic disease. Dictated by: Wm Ibarra M.D. on 05/13/2017 at 20:53 CT ABDOMEN AND PELVIS WITH CONTRAST IMPRESSION: 1. No acute process. 2. 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 3. No change in urinary bladder wall thickening. 4. Fecal impaction within the rectum, with moderate diffuse colonic stool. Dictated by: Wm Ibarra M.D. on 05/13/2017 at 20:55 12-lead ECG EKG shows normal sinus rhythm. Cardiac Echo Impressions Echocardiogram Report Name: WEST CALLES EStudy Date : 05/15/2017 Height: 69 in Hospital Exam Location: [facility] Weight: 159 lb Gender: Male BSA: 1.9 m2 : 1935 Age: 82 yrs BP: 129/68 mmHg Reason For Study: ELEVATED TROPONIN Ordering Physician: Gaudencio Morales Performed By: Beto Taylor Referring Physician: Dr. Venecia Godinez Interpretation Summary The ejection fraction is estimated to be 60-65%. There are no focal wall motion abnormalities. There is no significant valvular heart disease. Assessment & Plan West Calles is a 82-year-old man with severe dementia as well as history of pulmonary embolism previously on anticoagulation, atrial fibrillation, prostate cancer who presents to the [facility] emergency department today due to a fall and bruising on his chest. Elevated troponin of uncertain significance, present on admission, active -Likely secondary to chest trauma, but patient is difficult historian. -We will continue to trend troponin. We will check another troponin in a.m. EKG when necessary pain. -We will continue Telemetry monitoring -Echocardiogram is unremarkable -We will hold off on heparin drip given patient's large chest hematoma and therapeutic INR (no reversal at this time). However, we will start Lovenox for DVT prophylaxis. -Patient would unlikely be a candidate for PCI due to his underlying dementia and coronary disease. -We will proceed with maximal medical management. -We will continue with daily aspirin, will initiate statin, will initiate beta dianne. -We will hold off on Plavix Urinary tract infection, present on admission, active -UA shows greater than 50 WBCs. -Microbiology review of past records does not note any resistant organisms. Patient does not have risk factor for ESBL. -We will be treating with ceftriaxone. -We will check Urine culture reveals "mixed gisella" and blood culture is negative to date . Ground-level fall with extensive ecchymosis and skin tears and Rhabdomyolysis, present on admission, active - Continue IV fluids to preserve renal function due to rhabdomyolysis and repeat CPK in a.m. -Fall precautions -Likely due to underlying neuropathy and dementia in combination with patient's urinary tract infection. -PT evaluation -We will continue holding warfarin - The patient's states that the patient was left on the metal mattress frame for over 24 hours as known in the family could move him. It was not until the grandson noticed that he had a large bruise on his chest that they called 911. Severe dementia, present on admission, active -Records review indicates that the patient has been struggling with severe dementia for many years. -In 2013 palliative care was consulted at that time believed that the patient has such severe dementia and that his risk of in the next 6 months with 30 -40% -We consulted palliative care team and the patient's was very upset over this as she feels that palliative care is just a bridge to dying.. -Social work consult as well. Patient and patient's live alone. Patient' s is also quite frail and the patient's PCP had concern over the 's ability to adequately care for the patient. -Speech therapy eval appreciated. - Discussed with Dr. Efren Buchanan increased from a neurology consult in a.m. He recommends an MRI of the brain and an EEG. These were ordered. Paroxysmal Atrial fibrillation, present on admission, active -Hold warfarin as patient's stated the patient "has had over 1000 falls in the last 3 years". Fecal impaction within the rectum, with moderate diffuse colonic stool -Bowel regiment. Consider magnesium citrate provided patient is safe to swallow thins. Chronic severe hydronephrosis - I have consulted urology and appreciate their time and expertise and will follow the recommendations. - Patient to follow-up with urology as an outpatient. Debility - We have consulted physical therapy and occupational therapy - Difficulty chewing and swallowing - We will consult speech therapy. - We will check MRI and EEG and consult neurology. Disposition: The patient will be air another 48-72 hours for further evaluation and treatment of the above conditions. Pain Evaluation: Adequate Pain Control VTE Prophylaxis: Theraputic Anticoag with Warfarin Resuscitation Status: DNR/DNI:Do Not Resuscitate/Intubate Maxx Tobar MD May 15, 2017 22:36
[2017-05-15] MEDS: cefTRIAXone Inj 2,000 MG in Dextrose 5% Minibag Plus 50 ML IV SCH (23:17)
[2017-05-16] VITALS (7 sets, daily range): BP systolic 157–170; BP diastolic 77–79; PULSE 68–79; RESP 16–18; O2SAT 92–97
[2017-05-16] MEDS: 0.9% Sodium Chloride 1,000 ML IV SCH ×3 (00:11→21:39)
--- NOTE | 2017-05-16 06:07 | NUR ---
NOC Activity Pt has been alert and oriented only to self. Does not know where he is. Frequent re-orientation provided. Denies chest pain, n/v or abd discomfort. VSS and has been afebrile. Condom cath provided for possible UA. HS meds administered as scheduled. Will continue to monitor. Addendum: 05/16/17 at 0646 by DARRELL MOHAN RN Urine sent to lab for analysis
[2017-05-16 06:40] LABS: BASOPHILS % (AUTO) 0.4 % (0-3); EOSINOPHILS % (AUTO) 3.4 % (0-5); MONOCYTES % (AUTO) 8.7 % (4-12); Mean Corpuscular Hemoglobin 29.3 pg (27.0-35.0); Mean Corpuscular Volume 90.2 fL (81-100); NEUTROPHILS % (AUTO) 72.7 % (40-74); Platelet Count 121 bil/L (150-400)
[2017-05-16 06:45] LABS: Magnesium 1.9 mg/dL (1.6-2.6)
[2017-05-16 06:56] LABS: TROPONIN T 0.052 ug/L (0.0-0.011)
[2017-05-16 10:22] LABS: APPEARANCE,URINE HAZY (CLEAR,HAZY); COLOR,URINE STRAW (YELLOW); OCCULT BLOOD,URINE SMALL (NEGATIVE); PH,URINE 5.5 (5.0-8.0); UROBILINOGEN,URINE NORMAL (NORMAL)
--- NOTE | 2017-05-16 10:27 | NUR ---
Social Work-multidisciplinary rounds: During morning rounds, MD states pt will likely be in the hospital for another 1-2 days. Cardiology to see pt and as well neurology.PT continues to recommend SNF placement. Choice list has been provided to and she is to tour facilities today. SW to follow up after this for choice. CANDICE Wayne
[2017-05-16] MEDS: Tolterodine ER 2 mg ER24 Capsule PO SCH (12:29)
[2017-05-16 13:31] LABS: APPEARANCE,URINE HAZY (CLEAR,HAZY); COLOR,URINE STRAW (YELLOW); OCCULT BLOOD,URINE MODERATE (NEGATIVE); UROBILINOGEN,URINE NORMAL (NORMAL)
--- NOTE | 2017-05-16 14:31 | NUR ---
[facility] - faxed H&P to Laurita Piper,
--- NOTE | 2017-05-16 14:32 | DRSVH ---
PROCEDURE: MRI STROKE PROTOCOL ([id number]) Pre- and post-contrast brain MRI, non-contrast brain MR angiogram, pre- and postcontrast neck MR lloyd ogram INDICATIONS: Decreased level of consciousness TECHNIQUE: Brain: Noncontrast axial T1 spin echo, axial T2 fast spin echo, sagittal and axial FLAIR, coronal T2 fast spin echo, axial gradient echo, axial diffusion and ADC through the brain. After the administr ation of contrast, axial 3D VIBE of the cranial vasculature and brain. Brain MRA: Non-contrast 3-D time of flight MR angiogram, with multiple owttlxf-jgirbcchi-vbydlybgbs (MIP) reformats performed. Neck MRA: Axial and sagittal TruFISP through the neck. Coronal dynamic MR angiogram during administ ration of contrast in the arterial and venous phases, with 3-dimenstional iaollvl-nytjqhlyt-hwehzupph n (MIP) reformats constructed from subtraction images. COMPARISON: [facility], MR, BRAIN W/O CONTRAST, 04/23/2014, 16:02. [facility], CT, CT BRAIN WO CON, 05/13/2017, 20:41. FINDINGS: Image quality: Limited by motion artifact. BRAIN: CSF spaces: Ventricles are normal in shape. Diffuse prominence of CSF space noted. Mild ventriculome irasema is noted which is stable compared to prior examination and could represent normal pressure hydro cephalus versus central volume loss. Basal cisterns are patent. No extra-axial fluid collections. Brain: No intracranial bleeds or mass effects. Davis-white matter interface is normal. Diffusion we ighted images show no acute ischemic insults. Chronic, small, left thalamic lacunar infarct noted. Le ft putamen prominent perivascular space is stable compared to prior examination. Brainstem appears n ormal. Normal intravascular flow voids are present. No abnormal intracranial enhancement. Skull and face: Calvarial marrow signal is normal. Orbits appear normal. Sinuses: Large mucous retention cyst versus polyp noted in the left maxillary sinus. Small mucous ret ention cyst versus polyp is noted in the right maxillary sinus. mastoids are clear. BRAIN MR ANGIOGRAM: Anterior circulation: Intracranial internal carotid arteries are normal in size and enhancement. The flow within the paired anterior cerebral arteries is normal and symmetric. Mild atherosclerotic irr egularity noted in the A1 segment of the right anterior cerebral artery. The flow within the middle c erebral arteries is normal and symmetric. The anterior communicating artery is seen. No stenoses, o cclusions, or aneurysms. Posterior circulation: The visualized portions of the vertebral arteries demonstrate normal caliber, and join to form a normal appearing basilar artery. The flow within the posterior cerebral arteries is normal and symmetric. No stenoses, occlusions, or aneurysms. NECK MR ANGIOGRAM: Carotids: Great vessels demonstrate a conventional anatomy as they arise from the aortic arch. The origins of the common carotid arteries appear patent. The calibers and courses of both common caroti d arteries are normal. The bifurcation regions appear normal bilaterally. The internal carotid lillie graeme demonstrate normal course and caliber. Posterior circulation: The origins of the vertebral arteries appear patent. More superior portions of both vertebral arteries demonstrate normal course and caliber, and join to form a normal appearing basilar artery. Miscellaneous: Subclavian arteries appear patent. Pre-contrast images through the neck show no soft tissue abnormalities. IMPRESSION: BRAIN MRI: 1. No acute intracranial disease process. 2. Mild diffuse long loss. 3. Mild periventricular and subcortical matter chronic microvascular changes. 4. Old, small, left thalamic lacunar infarct. 5. Mild ventriculomegaly which may be due to central volume loss versus normal pressure hydrocephalus . Please correlate with clinical data. BRAIN MR ANGIOGRAM: 1. Mild atherosclerotic irregularity without measurable stenosis involving the A1 segment of the righ t anterior cerebral artery. 2. Otherwise, negative MR angiogram of the brain. NECK MR ANGIOGRAM: Negative examination. The estimate of stenosis included in the report of the imaging study was calculated using the NASCET method Dictated by: Kirti Lucero MD, PhD on 05/16/2017 at 14:05 Approved by: Kirti Lucero MD, PhD on 05/16/2017 at 14:30
--- NOTE | 2017-05-16 15:30 | NUR ---
Social Work-readiness for discharge: Data:EMR reviewed. Pt is on day 3 of hospitalization for chest pain per H&P. Pt is not medically stable anticipate 1-2 more days. PT continues to see pt and recommend SNF placement. SW followed up with pt and again regarding SNF. Pt's has decided that she would rather take pt home and would want HH services. SW went over the risk and benefits of SNF with pt's and she still refuses to have pt go to SNF. SW spoke with MD who is agreeable for HH services. MD order received for [facility]-RN,PT,OT,DRYWALL FINISHER FOREMAN, and MENTAL TESTER 3 times a week. SW followed up with , HH choice list provided. would like a referral to [facility]. SW called [facility] and left message with referral, requesting a return call for confirmation, awaiting a call. APS involved and will need to be updated at discharge. F2F in folder. SW will continue to follow. Assessment:Pt who is declining SNF, agreeable to HH. Plan:Pt to discharge home with support from family via POV. Referral made to [facility]-RN,PT,OT,DRYWALL FINISHER FOREMAN, and MENTAL TESTER 3 times a week, awaiting a return call for confirmation. APS involved and will need to be updated at discharge. F2F in folder. SW will continue to follow. CANDICE Wayne Addendum: 05/16/17 at 1602 by USMAN MAHONEY SS SW received a call from [facility] who confirms he received message and can accept referral, access given. to complete F2F. SW will continue to follow. CANDICE Wayne
--- NOTE | 2017-05-16 17:12 | CONS ---
[address] [address] CONSULTATION REPORT PATIENT: MARLINE CALLES : 1935 MR#: [id number] ADMIT: 05/13/2017 JOB ID: [id number] DATE OF SERVICE: 05/16/2017 CHIEF COMPLAINT: Elevated troponin. REQUESTED BY: Maxx Tobar MD HISTORY OF PRESENT ILLNESS: This 82-year-old gentleman has advanced dementia. He lives at home with his family and he has history of multiple falls. It appears that the patient had fallen and lay on the ground for over 24 hours. He came to the hospital with elevated CPK and no significant elevation of CPK-MB, but there was minimal elevation of troponin. It was initially felt that his condition was noncardiac and Cardiology consultation was not requested; however the patient's insisted on having a Cardiology consultation, and hence I was asked to see the patient. The patient denies any chest discomfort, chest pressure. He is not capable of giving any decent history. History was supplemented by his who is hard of hearing and probably not a very reliable historian either. She states the patient up until a few months ago was ambulatory and walking around in his yard. Lately he stopped doing that. She denies him complaining of any chest discomfort. No orthopnea or PND. She has not noticed any significant swelling in his legs. She is quite convinced that the patient has both Parkinson's and Lewy body dementia. She is an avid reader. She diagnosed this based on a magazine that she takes regularly gets. REVIEW OF SYSTEMS: As per HPI. Comprehensive review of systems was attempted but is impossible because of patient's severe dementia. ALLERGIES: None. MEDICATIONS: In the hospital, he has been getting metoprolol 12.5 b.i.d., aspirin, Detrol, docusate, enoxaparin, Elavil, Zofran, and tamsulosin. PERSONAL HISTORY: Nonsmoker. Nondrinker. PAST MEDICAL HISTORY: Dementia, history of prior PE, atrial fibrillation, hypertension and prostate cancer. SURGICAL HISTORY: Inguinal hernia repair. FAMILY HISTORY: Not obtainable. According to charts, the patient's mother had multiple myeloma. PHYSICAL EXAMINATION: Vitals stable. Comfortable, lying flat in bed. No apparent distress. Neck is supple. No JVD. No bruits. Chest: Clear. Heart sounds S1, S2, regular. No murmurs or gallops. Abdomen is soft. Extremities: Negative for CCE. CADDYMASTER: Alert and oriented to place and person. LABORATORY DATA: Significant for platelets of 121,000; they were down to 53,000 the day before yesterday. Hemoglobin is 13.2, creatinine is 1.14, GFR is 65. Troponin is 0.052 and has stayed around that level for the last two days. His peak CPK was around 1600 with MB fraction of 0.7%. DIAGNOSTIC DATA: EKG showed sinus rhythm. ASSESSMENT AND PLAN: This gentleman presents with elevated CPKs with no significant elevation in MB fraction but minimal elevation in troponin. This could be all in keeping with mild rhabdomyolysis. His EKG was normal and he has not been complaining of any chest discomfort. His echocardiogram showed preserved LV function with no wall motion abnormalities. At this point, I do not feel any further cardiac workup is indicated. He is already on beta blockers as well as aspirin. I do not feel adding a statin is going to increase his longevity. With regards to his atrial fibrillation, the EKG I have seen shows sinus rhythm. If he is indeed truly going in and out of atrial fibrillation, discussion may be had with his with regard to anticoagulation. I have not made any plans for further followup but would be happy to reassess him at your request.
--- NOTE | 2017-05-16 18:33 | PROCED ---
[address] [address] EEG PATIENT: MARLINE CALLES : 1935 MR#: [id number] ADMIT: 05/13/2017 JOB ID: [id number] DATE OF SERVICE: 05/16/2017 HISTORY: The patient is an 82-year-old man with altered mental status. TECHNICAL DESCRIPTION: This digital EEG was recorded using 25 scalp and ear, and two EKG electrodes. It was reviewed in bipolar and referential montages after being reformatted using the 10-20 International Electrode Placement System. During the recording the patient was noted to be awake, drowsy, and asleep. The background was composed of a polymorphic mixture of theta and delta, principally 5-7 hertz and very low voltage, less than 10 microvolts per mm. The rest of the background was composed of low voltage faster frequencies. There were no focal, lateralized, or epileptiform discharges noted. There were no seizures seen. There was brief artifact noted which appeared as brief sharps, however represent artifact. Hyperventilation was not performed secondary to lack of cooperation. Photic stimulation from 1 to 30 hertz did not elicit any photic driving response. Sleep was characterized by the attenuation of the alpha rhythm and the appearance of symmetrical vertex waves, heralding stage 1 of sleep. This was followed by the development of partial sleep spindling which appeared more prominent over the left hemisphere, however was symmetrical. The EKG rhythm strip revealed a heart rate of 60 to 120 beats per minute with the intermittent absence of P waves. There was myogenic and movement artifact. IMPRESSION: This EEG performed in the awake, drowsy, and asleep states is abnormal. The slow background for age is suggestive of mild cerebral cortical dysfunction/encephalopathy. This is a nonspecific finding and may be seen in a wide variety of different clinical conditions, including toxic, metabolic, hypoxic, autoimmune, infectious, and ischemic states, as well as in the setting of the use of certain medications. The single lead EKG rhythm strip is suggestive of intermittent paroxysmal atrial fibrillation.
--- NOTE | 2017-05-16 20:15 | CONS ---
[address] [address] CONSULTATION REPORT PATIENT: MARLINE CALLES : 1935 MR#: [id number] ADMIT: 05/13/2017 JOB ID: [id number] DATE OF SERVICE: 05/16/2017 NEUROLOGY CONSULTATION: REQUESTING PROVIDER: Maxx Tobar MD CHIEF COMPLAINT: Unexplained falls. HISTORY OF PRESENTING ILLNESS: The patient is a pleasant 82-year-old, left-handed man with multiple medical problems who presented to the emergency department following a fall that resulted in bruising over the right side of his chest. It appears that he has had multiple falls that are unexplained and has been seen by multiple neurologists in the past. History is obtained from the chart, the patient, and his . His reports that his first fall was done November 21, 2013. He was admitted to the hospital after this fall and underwent a CT of his brain which demonstrated atrophic changes and an old left basal gangliar lacunar infarct. It was also noted that since the previous MRI in 2009 there were some new smaller lacunar type infarcts near the genu of the left internal capsule. The clarity of the visualization would suggest that they are at least several months old, however. He was also noted to have chronic left maxillary sinus opacification. I do not find an MRI report and it does not appear that he did have an MRI. Due to unsteadiness he was discharged to [place] for physical therapy. His reports that he fell multiple times that day, prompting the admission. He reports that he does not have any warning signs prior to his falls and he falls forward. Review of chart notes revealed that he has been admitted to this hospital for multiple falls in the past. He had cervical spine MRIs performed as well, which I reviewed in detail. He was seen by Dr. Lou Willard and Dr. Homar Buchanan. I reviewed their extensive chart notes in detail. The nature of his falls was thought to be secondary to peripheral neuropathy. There was a concern for possible NPH, however this was thought to be unlikely. I reviewed and compared his prior MRIs of the brain from 2013 to 2016 and, although there is evidence of ventriculomegaly, he does not appear classic for normal pressure hydrocephalus. He also underwent an MRI of his lumbar spine which demonstrated multilevel degenerative disc and facet disease which was noted to have increased compared to 2009. Increased moderate bilateral L3-L4 and L4-L5 foraminal stenosis, increased mild to moderate bilateral L5-S1 foraminal stenosis, and mild multilevel canal stenosis which was noted to be unchanged. An MRI of the cervical spine was performed. This demonstrated desiccation and height loss of the cervical spine most severe at C5-C6 and C6-C7. Overall findings similar in extent to the study dated May 05, 2014, including mild canal stenosis at C4-C5 and C6-C7 and moderate canal stenosis at C5-C6. No change in multilevel mild to moderate foraminal narrowing. An MRI of the thoracic spine was performed in 2013 that demonstrated multilevel degenerative disc disease, no significant canal or foraminal stenosis, and no evidence of multiple sclerosis. The MRI performed today demonstrated no acute intracranial disease process, mild diffuse volume loss, mild periventricular and subcortical matter chronic microvascular changes, old small left thalamic lacunar infarct, and mild ventriculomegaly, which may be due to central volume loss versus normal pressure hydrocephalus, and mild atherosclerotic irregularity without measurable stenosis involving the A-1 segment of the right anterior cerebral artery. Otherwise negative MR angiogram of the brain and negative MR angiogram of the neck. There is some concern from his that he may have Lewy body dementia; however, based on clinical exam today, I do not see any a any evidence suggesting this as a possible diagnosis. An electroencephalogram was performed demonstrating slow background for age suggestive of mild cerebral cortical dysfunction/encephalopathy. Intermittent paroxysmal atrial fibrillation was also noted. He also had an echocardiogram which demonstrated the ejection fraction estimated to be 60%-65%. No focal wall motion abnormalities. No significant valvular heart disease. PAST MEDICAL HISTORY: Remarkable for paroxysmal atrial fibrillation, pulmonary emboli, dementia, hypertension, prostate cancer, and [employer]. PAST SURGICAL HISTORY: Inguinal hernia repair. FAMILY HISTORY: Patient's mother had multiple myeloma. SOCIAL HISTORY: Former smoker. He does not smoke now. No drugs or alcohol. Lives with his . HOME MEDICATIONS: Aspirin, Detrol, nortriptyline, and Uroxatral. REVIEW OF SYSTEMS: A complete review of systems was performed and was remarkable for above-noted. It appears that prior to today's visit the patient was noted to be in altered mental status, as he appeared to be alert at the time of today's visit. He was on warfarin for paroxysmal atrial fibrillation it appears in the past. LABORATORY: Laboratory studies at the time of presentation to the hospital were as follows: WBC of 7.6, hemoglobin 14.9, hematocrit 43.9, platelets of 69. Sodium 140, potassium 3.8, chloride 102, bicarb 24, BUN 19, creatinine 1.04, and glucose of 111. PHYSICAL EXAMINATION: Temperature 36.5, pulse of 72, respiratory rate of 18, blood pressure 150/77, and pulse oximetry 97% on room air. General: He is a well-developed, well-nourished, frail-appearing older gentleman in no acute distress. Head: Normocephalic, atraumatic. Neck: Supple. No carotid bruits were auscultated. Chest: Clear to auscultation. Heart: Regular rate and rhythm. Abdomen: Soft, nondistended, nontender. Extremities: No cyanosis, clubbing, or edema. There was tenderness to palpation over the right chest wall, where there is evidence of extensive ecchymoses. NEUROLOGIC EXAMINATION: Mental status: He is awake, alert, oriented x3. There is a mild degree of expressive aphasia. I did not appreciate any receptive aphasia. There is no dysarthria. Cranial nerves: Pupils equal, round, and reactive to light. 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 Incidentally, he does report that he has loss of vision in the right eye. Visual aden were full to confrontation. Face appeared symmetrical. Facial sensation was intact to light touch and temperature. Extraocular movements were smooth and conjugate, with no evidence of nystagmus. Auditory sensation was severely diminished to voice. Palatal elevation was symmetrical. Tongue was midline. Sternocleidomastoids and trapezii were 5/5 bilaterally. Motor: Normal tone and bulk. Muscle strength 5/5 throughout. Sensation was diminished in a bilateral stocking distribution to his knees to light touch and temperature. Deep tendon reflexes were diminished throughout. Plantars are flexor bilaterally. Absent at the Achilles bilaterally. Coordination: [id number]-[id number] was intact, without evidence of dysmetria. Gait was deferred. IMPRESSION: Unexplained falls characterized by falling forward with no loss of consciousness. 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 Review of his magnetic resonance imaging study of the brain, when compared to the 2014 study, did not demonstrate a significant change in the degree of mild ventriculomegaly. Given this finding, it is unlikely that a ventriculoperitoneal shunt, even if he does have normal pressure hydrocephalus, would significantly changed his neurologic symptoms. My suspicion is that his dementia is likely related to small vessel ischemic disease. My suspicion is that many of his symptoms are related to [employer] exposure and he does report that he was told by the [employer] that he was exposed to [employer]. In the differential for his unexplained falls is also anomic neuropathy and further evaluation with a possible tilt-table test as an outpatient may further delineate whether in fact he does have autonomic neuropathy. In the case that he does, low-dose Mestinon or midodrine or Florinef may be options for treatment. In the differential is atypical Parkinson's; however, besides his unexplained forward falls, there is no evidence suggestive of the diagnosis of atypical Parkinson's. In any case, patients with atypical Parkinson's often have an incomplete response to carbidopa/levodopa therapy. I do recommend that he undergo physical therapy; if not inpatient or at his house, then at least outpatient. I also recommend that his house be "fall proofed" and I do recommend that efforts be made to prevent falls. We discussed the importance of using his walker and holding onto the levine as needed for support. His explained to me that she did note significant improvement in his ataxia and a reduction in the frequency of his falls after physical therapy at his house in the past. She reports that when the physical therapy ran out, she requested that his primary care physician Dr. Godinez reorder physical therapy and she would drive him to these outpatient physical therapy visits, however at that time he declined. I did speak with him about the importance of fall prevention and the importance of physical therapy and he is amenable at this time to pursuing physical therapy and the importance of fall prevention. I do recommend that he follow up with his primary care physician as an outpatient. He may also benefit from following up with me as well, as an outpatient, as Dr. Buchanan has retired. Thank you again, Dr. Tobar, for allowing me to participate in the care of this delightful and interesting patient. Please feel free to contact me with any questions or concerns.
[2017-05-16] MEDS: cefTRIAXone Inj 2,000 MG in Dextrose 5% Minibag Plus 50 ML IV SCH (22:33)
--- NOTE | 2017-05-16 22:56 | PCM.PNMED ---
Subjective Date of Service May 16, 2017 Subjective Patient is much more awake and alert today. He is much more responsive. He has no new complaints. His pain is much better today Exam Vital Signs Vital Sign - Last Date Time Temp Pulse Resp B/P Pulse Ox O2 Delivery O2 Flow Rate FiO2 05/16/17 20:41 36.7 68 18 167/79 97 Room Air Intake and Output 05/15/17 05/15/17 05/16/17 Cumulative From/Thru 15:00 23:00 07:00 05/13/17 18:41 - 05/16/17 06:07 Intake Total 400 ml 1908 ml 1073 ml 5285 ml Output Total 250 ml Balance 400 ml 1908 ml 1073 ml 5035 ml Intake Oral 400 ml 696 ml 0 ml 1714 ml IV Total 1212 ml 1073 ml 3571 ml Output Urine Total 250 ml # Voids 1 4 3 11 # Bowel Movements 1 3 Exam General: Patient is resting comfortably and is in no distress. He appears more comfortable again today than yesterday. Patient is less somnolent today. HEENT: Head is atraumatic and normocephalic. Eyes: Pupils are equally round and reactive to light and accommodation. Extraocular muscles are intact. Sclera are white, anicteric. Subconjunctival mucosa is pink. Ears and nose are unremarkable. Oropharynx: There are no mucosal lesions, there is no thrush , there is no pharyngitis. Oral mucosa is dry. Neck: Is supple, there are no nodes, or masses or tenderness. Chest: Is clear to auscultation and percussion. There are no rales, rhonchi, wheezes or rubs. There are coarse breath sounds. The area of ecchymosis in the area of the right lower rib cage appears improved. Heart: Rate, rhythm is regular. There is no murmur, rub or gallop. Abdomen: Good bowel sounds are present. Abdomen is soft, with less tenderness on the right side in the right upper quadrant and right lower quadrant than yesterday. This tenderness is nonspecific and there is no rebound tenderness or guarding. There is no organomegaly or masses were appreciated. The superficial scrape in the abdomen is unchanged. Extremities: Are symmetrical and well perfused. There is no edema, there is no cellulitis, no rash. There is a large ecchymosis over the right hip area. Also , there is an abrasion on the right knee. Also has some mild abrasions on the right forearm to wrist. Neurologic: There are no focal neurological deficits. Cranial nerves II through XII are intact. There are no sensory or motor deficits. The patient is less somnolent today. Psychiatric: Patients mood is calm and he shows no sign of agitation at this time. Genital: Deferred Rectal: Deferred Lab and Diagnostics Result Diagram: 05/16/1751105/16/17511 Microbiology Blood and urine cultures are pending. X-Rays, CTs and MRIs X-RAY CHEST ONE VIEW, PORTABLE IMPRESSION: No acute process. Dictated by: Wm Ibarra M.D. on 05/13/2017 at 19:51 CT BRAIN WITHOUT CONTRAST IMPRESSION: 1. No acute process. 2. Chronic left sided infarcts. 3. Volume loss and small vessel ischemic disease. Dictated by: Wm Ibarra M.D. on 05/13/2017 at 20:53 CT ABDOMEN AND PELVIS WITH CONTRAST IMPRESSION: 1. No acute process. 2. 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 3. No change in urinary bladder wall thickening. 4. Fecal impaction within the rectum, with moderate diffuse colonic stool. Dictated by: Wm Ibarra M.D. on 05/13/2017 at 20:55 12-lead ECG EKG shows normal sinus rhythm. Cardiac Echo Impressions Echocardiogram Report Name: WE[facility] CALLES EStudy Date : 05/15/2017 Height: 69 in Hospital Exam Location: [facility] Weight: 159 lb Gender: Male BSA: 1.9 m2 : 1935 Age: 82 yrs BP: 129/68 mmHg Reason For Study: ELEVATED TROPONIN Ordering Physician: Gaudencio Morales Performed By: Beto Taylor Referring Physician: Dr. Venecia Godinez Interpretation Summary The ejection fraction is estimated to be 60-65%. There are no focal wall motion abnormalities. There is no significant valvular heart disease. Additional Diagnostics EEG done 05/16/2017: IMPRESSION: This EEG performed in the awake, drowsy, and asleep states is abnormal. The slow background for age is suggestive of mild cerebral cortical dysfunction/encephalopathy. This is a nonspecific finding and may be seen in a wide variety of different clinical conditions, including toxic, metabolic, hypoxic, autoimmune, infectious, and ischemic states, as well as in the setting of the use of certain medications. The single lead EKG rhythm strip is suggestive of intermittent paroxysmal atrial fibrillation. Efren Buchanan MD 05/16/17 2845 Assessment & Plan [place] Calles is a 82-year-old man with severe dementia as well as history of pulmonary embolism previously on anticoagulation, atrial fibrillation, prostate cancer who presents to the [facility] emergency department today due to a fall and bruising on his chest. Elevated troponin of uncertain significance, present on admission, active -Likely secondary to chest trauma, but patient is difficult historian. -We will continue to trend troponin. We will check another troponin in a.m. EKG when necessary pain. -We will continue Telemetry monitoring -Echocardiogram is unremarkable -We will hold off on heparin drip given patient's large chest hematoma and therapeutic INR (no reversal at this time). However, we will start Lovenox for DVT prophylaxis. -Patient would unlikely be a candidate for PCI due to his underlying dementia and coronary disease. -We will proceed with maximal medical management. -We will continue with daily aspirin, will initiate statin, will initiate beta dianne. -We will hold off on Plavix -I have asked frozen yogurt maker Dr. Muller to consult and appreciate his time and expertise. His impression and recommendations are as follows: "This gentleman presents with elevated CPKs with no significant elevation in MB fraction but minimal elevation in troponin. This could be all in keeping with mild rhabdomyolysis. His EKG was normal and he has not been complaining of any chest discomfort. His echocardiogram showed preserved LV function with no wall motion abnormalities. At this point, I do not feel any further cardiac workup is indicated. He is already on beta blockers as well as aspirin. I do not feel adding a statin is going to increase his longevity. With regards to his atrial fibrillation, the EKG I have seen shows sinus rhythm. If he is indeed truly going in and out of atrial fibrillation, discussion may be had with his with regard to anticoagulation. I have not made any plans for further followup but would be happy to reassess him at your request." Urinary tract infection, present on admission, active -UA shows greater than 50 WBCs.. A repeat UA shows greater than 50 white blood cells still. Repeat culture is pending. -Microbiology review of past records does not note any resistant organisms. Patient does not have risk factor for ESBL. -We will continue treating with ceftriaxone. -We will check Urine culture reveals "mixed gisella" and blood culture is negative to date . Repeat urine culture is pending Ground-level fall with extensive ecchymosis and skin tears and Rhabdomyolysis, present on admission, active - Continue IV fluids to preserve renal function due to rhabdomyolysis and repeat CPK in a.m. -Fall precautions -Likely due to underlying neuropathy and dementia in combination with patient's urinary tract infection. -PT evaluation -We will continue holding warfarin - The patient's states that the patient was left on the metal mattress frame for over 24 hours as known in the family could move him. It was not until the grandson noticed that he had a large bruise on his chest that they called 911. Severe dementia, present on admission, active -Records review indicates that the patient has been struggling with severe dementia for many years. -In 2013 palliative care was consulted at that time believed that the patient has such severe dementia and that his risk of in the next 6 months with 30 -40% -We consulted palliative care team and the patient's was very upset over this as she feels that palliative care is just "a bridge to dying". -Social work consult as well. Patient and patient's live alone. Patient' s is also quite frail and the patient's PCP had concern over the 's ability to adequately care for the patient. -Speech therapy eval appreciated. - Discussed with Dr. Efren Buchanan who was kind enough to see the patient for a neurology consult today. He recommended an MRI of the brain and an EEG. These were completed. Dr. Buchanan's time and expertise was appreciated. Please see his long and extensive consultation for his thoughts and recommendations. Paroxysmal Atrial fibrillation, present on admission, active -Hold warfarin as patient's stated the patient "has had over 1000 falls in the last 3 years". Fecal impaction within the rectum, with moderate diffuse colonic stool -Bowel regiment. Consider magnesium citrate provided patient is safe to swallow thins. Chronic severe hydronephrosis - I have consulted urology and appreciate their time and expertise and will follow the recommendations. - Patient to follow-up with urology as an outpatient. Debility - We have consulted physical therapy and occupational therapy - Difficulty chewing and swallowing - We will consult speech therapy. - We will check MRI and EEG and consult neurology. Disposition: The patient will be air another 24-48 hours for further evaluation and treatment of the above conditions. Pain Evaluation: Adequate Pain Control VTE Prophylaxis: Theraputic Anticoag with Warfarin Resuscitation Status: DNR/DNI:Do Not Resuscitate/Intubate Maxx Tobar MD May 16, 2017 22:56
[2017-05-17 01:25] VITALS: BP 149/67; PULSE 61; RESP 18; O2SAT 97
[2017-05-17 05:22] VITALS: PULSE 71
--- NOTE | 2017-05-17 05:44 | NUR ---
Confusion Pt confused this shift, pulling at lines, pulled condom cath off, brief in place. Frequent reorientation provided. Pt resting in bed this shift, no attempts in get out of bed, jorge a alarm on.
[2017-05-17 06:14] VITALS: BP 168/90; PULSE 60; RESP 18; O2SAT 96
[2017-05-17 06:16] LABS: BASOPHILS % (AUTO) 0.8 % (0-3); EOSINOPHILS % (AUTO) 7.7 % (0-5); MONOCYTES % (AUTO) 12.5 % (4-12); Mean Corpuscular Hemoglobin 28.8 pg (27.0-35.0); Mean Corpuscular Volume 89.2 fL (81-100); NEUTROPHILS % (AUTO) 55.9 % (40-74); Platelet Count 132 bil/L (150-400)
[2017-05-17 06:28] LABS: Magnesium 1.8 mg/dL (1.6-2.6)
[2017-05-17 06:48] LABS: INR 1.18 ratio
[2017-05-17 08:00] VITALS: PULSE 62
[2017-05-17 08:35] VITALS: BP 145/65; PULSE 63; RESP 17; O2SAT 97
[2017-05-17] MEDS: 0.9% Sodium Chloride 1,000 ML IV SCH ×2 (08:49→12:25)
[2017-05-17] MEDS: Tolterodine ER 2 mg ER24 Capsule PO SCH (11:03)
--- NOTE | 2017-05-17 11:59 | NUR ---
Social Work: Continued d/c plan / Multidisciplinary Rounds Data: Pt is on day 4 of hospitalization. EMR reviewed, pt discussed in rounds. MD states pt likely to d/c today and wants PT to work with pt before he leaves. DIRECTOR HOUSEKEEPING spoke with APS worker, Laurita Piper [phone]. Laurita told DIRECTOR HOUSEKEEPING that pt and spouse were agreeable to SNF yesterday, [facility] DIRECTOR HOUSEKEEPING notes reveal they wanted home with HH yesterday. DIRECTOR HOUSEKEEPING spoke with pt and spouse at bedside for clarification. They state they want home with HH and that they have been consistent with these desires. DIRECTOR HOUSEKEEPING again explained risks and benefits of SNF decision, they states understanding and continue to want home with HH. DIRECTOR HOUSEKEEPING will continue to follow. Assessment: Pt with caregiving at baseline, not capable of self care at this time. Plan: Pt will d/c home via undetermined means when medically stable, likely today with [facility] for RN/PT/OT/POLYMERIZATION OVEN TENDER/DIRECTOR HOUSEKEEPING. DIRECTOR HOUSEKEEPING will follow up post PT about mode of transportation home. DIRECTOR HOUSEKEEPING will continue to follow. CANDICE Jeong
[2017-05-17 13:19] VITALS: BP 134/71; PULSE 61; RESP 18; O2SAT 96
--- NOTE | 2017-05-17 15:22 | NUR ---
Social Work: Readiness for d/c Data: PT worked with pt, continues to recommend SNF. Pt and animatedly decline again. PROOF MACHINE OPERATOR SUPERVISOR spoke with who states pt likely to d/c tonight or tomorrow. HH is set up through [facility], RN/PT/OT/JUSTICE COURT DEPUTY CLERK/PROOF MACHINE OPERATOR SUPERVISOR. PROOF MACHINE OPERATOR SUPERVISOR spoke with Chuckie, F2F completed by , given to [facility]. PT states pt safe to travel by POV. PROOF MACHINE OPERATOR SUPERVISOR provided pt with senior resource book for private pay caregiving options. PROOF MACHINE OPERATOR SUPERVISOR will continue to follow if needs arise. Assessment: Pt who is independent at baseline. Plan: Pt will d/c home via POV with spouse either tonight or tomorrow with [facility]. PROOF MACHINE OPERATOR SUPERVISOR will continue to follow. CANDICE Jeong
--- NOTE | 2017-05-17 15:32 | PCM.DIMED ---
Discharge Instructions Date of Service May 17, 2017 Dates of Hospitalization May 13, 2017 at 21:47 Discharge Diagnosis Discharge Diagnosis Fall with Rhabdomyolysis Diet Discharge Diet: Heart Healthy Activity Discharge Activity: Outpatient Physical Therapy (As per outpatient PT) Call your provider Call your provider for: Fever or Chills, Shortness of breath, Bleeding, Chest pain, Vomitting, Excessive diarrhea, Weakness (unilateral) Patient Instructions Follow-up Provider: Price Godinez MD Follow-up with PCP in: 1 week (Patient needs Urology referral.) Provider: Efren Buchanan MD Follow-up in: 2 weeks Maxx Tobar MD May 17, 2017 15:32
[2017-05-17] MEDS ORDERED: CEFD300C3 PO (15:40)
--- NOTE | 2017-05-17 16:52 | NUR ---
DISCHARGE Patient discharged home at 1640 off floor in wheelchair accompanied by RN, THREAD TRIMMER and . Vitals stable, denies pain and in no apparent distress. IV discontinued intact, all belongings returned. All instructions for diet, activity (per home health PT), medications, new prescription and follow-up reviewed with patient and who report understanding.
--- NOTE | 2017-05-18 00:07 | PCM.DC.MED ---
Discharge Summary Date of Service May 17, 2017 Dates of Hospitalization Date of Hospital Admission May 13, 2017 at 21:47 Date of Discharge: May 17, 2017 Providers: Admitting Physician: Cheyenne Fisher DO Primary Care Physician: Price Godinez MD Attending Physician: Maxx Colindres MD Diagnosis at Time of Discharge Diagnosis at Time of Discharge Fall with Rhabdomyolysis Consultations The patient had consultants from cardiology Dr. Muller, Neurology Dr. Buchanan and urology. Procedures XRay, CTs & MRIs X-RAY CHEST ONE VIEW, PORTABLE IMPRESSION: No acute process. Dictated by: Wm Ibarra M.D. on 05/13/2017 at 19:51 CT BRAIN WITHOUT CONTRAST IMPRESSION: 1. No acute process. 2. Chronic left sided infarcts. 3. Volume loss and small vessel ischemic disease. Dictated by: Wm Ibarra M.D. on 05/13/2017 at 20:53 CT ABDOMEN AND PELVIS WITH CONTRAST IMPRESSION: 1. No acute process. 2. 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 3. No change in urinary bladder wall thickening. 4. Fecal impaction within the rectum, with moderate diffuse colonic stool. Dictated by: Wm Ibarra M.D. on 05/13/2017 at 20:55 ECG 12 Lead EKG shows normal sinus rhythm. Cardiac Echo Impression Echocardiogram Report Name: WEST CALLES EStudy Date : 05/15/2017 Height: 69 in Hospital Exam Location: [facility] Weight: 159 lb Gender: Male BSA: 1.9 m2 : 1935 Age: 82 yrs BP: 129/68 mmHg Reason For Study: ELEVATED TROPONIN Ordering Physician: Gaudencio Morales Performed By: Beto Taylor Referring Physician: Dr. Venecia Godinez Interpretation Summary The ejection fraction is estimated to be 60-65%. There are no focal wall motion abnormalities. There is no significant valvular heart disease. Other Diagnostics EEG done 05/16/2017: IMPRESSION: This EEG performed in the awake, drowsy, and asleep states is abnormal. The slow background for age is suggestive of mild cerebral cortical dysfunction/encephalopathy. This is a nonspecific finding and may be seen in a wide variety of different clinical conditions, including toxic, metabolic, hypoxic, autoimmune, infectious, and ischemic states, as well as in the setting of the use of certain medications. The single lead EKG rhythm strip is suggestive of intermittent paroxysmal atrial fibrillation. Efren Buchanan MD 05/16/17 Brief History West Calles is a 82-year-old man with severe dementia as well as history of pulmonary embolism previously on anticoagulation, atrial fibrillation, prostate cancer who presents to the [facility] emergency department due to a fall and bruising on his chest. 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 The patient was admitted to the hospitalist service for further evaluation and treatment. Hospital Course West Calles is a 82-year-old man with severe dementia as well as history of pulmonary embolism previously on anticoagulation, atrial fibrillation, prostate cancer who presents to the [facility] emergency department today due to a fall and bruising on his chest. Patient was admitted to the hospitalist service for further evaluation and treatment. Elevated troponin of uncertain significance, present on admission, active -Likely secondary to chest trauma, but patient is difficult historian. -We will continue to trend troponin. We will check another troponin in a.m. EKG when necessary pain. -We will continue Telemetry monitoring -Echocardiogram is unremarkable -We will hold off on heparin drip given patient's large chest hematoma and therapeutic INR (no reversal at this time). However, we will start Lovenox for DVT prophylaxis. -Patient would unlikely be a candidate for PCI due to his underlying dementia and coronary disease. -We will proceed with maximal medical management. -We will continue with daily aspirin, will initiate statin, will initiate beta dianne. -We will hold off on Plavix -I have asked director semiconductor Dr. Muller to consult and appreciate his time and expertise. His impression and recommendations are as follows: "This gentleman presents with elevated CPKs with no significant elevation in MB fraction but minimal elevation in troponin. This could be all in keeping with mild rhabdomyolysis. His EKG was normal and he has not been complaining of any chest discomfort. His echocardiogram showed preserved LV function with no wall motion abnormalities. At this point, I do not feel any further cardiac workup is indicated. He is already on beta blockers as well as aspirin. I do not feel adding a statin is going to increase his longevity. With regards to his atrial fibrillation, the EKG I have seen shows sinus rhythm. If he is indeed truly going in and out of atrial fibrillation, discussion may be had with his with regard to anticoagulation. I have not made any plans for further followup but would be happy to reassess him at your request." Urinary tract infection, present on admission, active -UA shows greater than 50 WBCs.. A repeat UA shows greater than 50 white blood cells still. Repeat culture is pending. -Microbiology review of past records does not note any resistant organisms. Patient does not have risk factor for ESBL. -We have been treating with ceftriaxone and we will change to oral Ceftin near 300 mg by mouth twice a day for 10 days to complete 2 weeks of therapy.. -We will check Urine culture reveals "mixed gisella" and blood culture is negative to date . Repeat urine culture is pending - Urology has recommended Flomax for the patient due to the duplicated collecting system on the right with hydronephrosis and the patient's refuses to allow patient to have Flomax as she has read about its "complications ". Ground-level fall with extensive ecchymosis and skin tears and Rhabdomyolysis, present on admission, active - We will discontinue IV fluids for rhabdomyolysis as the patient's CPK has normalized -Fall precautions -Likely due to underlying neuropathy and dementia in combination with patient's urinary tract infection. -PT evaluation -We will continue holding warfarin - The patient's states that the patient was left on the metal mattress frame for over 24 hours as nobody in the family could move him. It was not until the grandson noticed that he had a large bruise on his chest that they called 911. Severe dementia, present on admission, active -Records review indicates that the patient has been struggling with severe dementia for many years. -In 2013 palliative care was consulted at that time believed that the patient has such severe dementia and that his risk of in the next 6 months with 30 -40% -We consulted palliative care team and the patient's was very upset over this as she feels that palliative care is just "a bridge to dying". -Social work consult as well. Patient and patient's live alone. Patient' s is also quite frail and the patient's PCP had concern over the 's ability to adequately care for the patient. -Speech therapy eval appreciated. - Discussed with Dr. Efren Buchanan who was kind enough to see the patient for a neurology consult today. He recommended an MRI of the brain and an EEG. These were completed. Dr. Buchanan's time and expertise was appreciated. Please see his long and extensive consultation for his thoughts and recommendations. Paroxysmal Atrial fibrillation, present on admission, active -Hold warfarin as patient's stated the patient "has had over 1000 falls in the last 3 years". Fecal impaction within the rectum, with moderate diffuse colonic stool -Bowel regiment. Consider magnesium citrate provided patient is safe to swallow thins. Chronic severe hydronephrosis - I have consulted urology and appreciate their time and expertise and will follow the recommendations. - Patient to follow-up with urology as an outpatient. Debility - We have consulted physical therapy and occupational therapy - Difficulty chewing and swallowing - We will consult speech therapy. - We will check MRI and EEG and consult neurology. Disposition: After spending a considerable amount of time with the patient today Physical therapy has that the patient be discharged to a retirement facility and it is not safe for him to go home. However the patient's refuses to allow him to go to a senior care. Therefore, the patient will be discharged to home in the care of his . Exam Vital Signs (Last) Date Time Temp Pulse Resp B/P Pulse Ox O2 Delivery O2 Flow Rate FiO2 05/17/17 15:45 Room Air 05/17/17 13:19 36.7 61 18 134/71 96 Exam General: Patient is resting comfortably and is in no distress. He appears comfortable again today. Patient is less somnolent today. He was seen again in his wheelchair later in the day prior to discharge and appeared quite content and comfortable. HEENT: Head is atraumatic and normocephalic. Eyes: Pupils are equally round and reactive to light and accommodation. Extraocular muscles are intact. Sclera are white, anicteric. Subconjunctival mucosa is pink. Ears and nose are unremarkable. Oropharynx: There are no mucosal lesions, there is no thrush , there is no pharyngitis. Oral mucosa is dry. Neck: Is supple, there are no nodes, or masses or tenderness. Chest: Is clear to auscultation and percussion. There are no rales, rhonchi, wheezes or rubs. There are coarse breath sounds. The area of ecchymosis in the area of the right lower rib cage appears improved. Heart: Rate, rhythm is regular. There is no murmur, rub or gallop. Abdomen: Good bowel sounds are present. Abdomen is soft, with less tenderness on the right side in the right upper quadrant and right lower quadrant than yesterday. This tenderness is nonspecific and there is no rebound tenderness or guarding. There is no organomegaly or masses were appreciated. The superficial scrape in the abdomen is unchanged. Extremities: Are symmetrical and well perfused. There is no edema, there is no cellulitis, no rash. There is a large ecchymosis over the right hip area. Also , there is an abrasion on the right knee. Also has some mild abrasions on the right forearm to wrist. Neurologic: There are no focal neurological deficits. Cranial nerves II through XII are intact. There are no sensory or motor deficits. The patient is less somnolent today. Psychiatric: Patients mood is calm and he shows no sign of agitation at this time. Genital: Deferred Rectal: Deferred Test 05/13/17 18:55 05/14/17 05:05 05/15/17 07:15 05/16/17 05:12 Hold Banuelos Top Tube Received (Received) Creatine Kinase MB 9.2ng/mL (0.0-10.4) Creatine Kinase MB % 0.6% (0.0-5.0) Hematology Comments Aldolase 7.5U/L (3.3-10.3) Troponin T 0.052ug/L (0.0-0.011) Thyroid Stimulating Hormone (TSH) 1.500uIU/mL (0.450-4.500) Test 05/16/17 12:40 05/17/17 05:25 Urine Color Straw (YELLOW) Urine Appearance Hazy (CLEAR,HAZY) Urine pH 5.0 (5.0-8.0) Urine Specific [place] 1.020 (1.003-1.035) Urine Protein Negativemg/dL (NEG,TRACE) Urine Glucose (UA) Negativemg/dL (NEGATIVE) Urine Ketones Negativemg/dL (NEGATIVE) Urine Occult Blood Moderate (NEGATIVE) Urine Nitrite Negative (NEGATIVE) Urine Bilirubin Negative (NEGATIVE) Urine Urobilinogen Normalmg/dL (NORMAL) Urine Leukocyte Esterase Large (NEGATIVE) Urine RBC 0-2/hpf (0-2) Urine WBC >50/hpf (0-5) Urine Epithelial Cells Occasional/hpf (NONE-MOD) Urine Crystals None seen (NONE SEEN) Urine Bacteria Few/hpf (NONE-FEW) Urine Hyaline Casts None/lpf (NONE) Urine Granular Casts None seen (NONE SEEN) Urine Waxy Casts None seen (NONE SEEN) Urine Red Blood Cell Casts None seen (NONE SEEN) Urine White Blood Cell Casts None seen (NONE SEEN) Urine Mucus None seen (None Seen) Urine Trichomonas None seen (NONE SEEN) Urine Yeast None (NONE SEEN) Urinalysis Comment None Urine Culture Reflexed Indicated White Blood Count 5.2th/mm3 (3.8-10.1) Red Blood Count 4.34mil/mm3 (4.40-5.80) Hemoglobin 12.5g/dL (13.8-17.2) Hematocrit 38.7% (41.0-50.0) Mean Corpuscular Volume 89.2fL (81-100) Mean Corpuscular Hemoglobin 28.8pg (27.0-35.0) Mean Corpuscular Hemoglobin Concent 32.3% (32.0-37.0) Red Cell Distribution Width 14.2% (12.3-15.4) Platelet Count 132bil/L (150-400) Neutrophils (%) (Auto) 55.9% (40-74) Lymphocytes (%) (Auto) 22.7% (14-46) Monocytes (%) (Auto) 12.5% (4-12) Eosinophils (%) (Auto) 7.7% (0-5) Basophils (%) (Auto) 0.8% (0-3) Prothrombin Time 12.7sec (8.1-12.5) Prothromb Time International Ratio 1.18ratio Sodium Level 140mEq/L (134-144) Potassium Level 4.3mEq/L (3.5-5.2) Chloride Level 107mEq/L (97-108) Carbon Dioxide Level 22mmol/L (18-29) Blood Urea Nitrogen 16mg/dL (8-27) Creatinine 0.83mg/dL (0.76-1.27) Estimat Glomerular Filtration Rate 94mL/min (>59) Glucose Level 91mg/dL (60-99) Calcium Level 8.1mg/dL (8.5-10.1) Magnesium Level 1.8mg/dL (1.6-2.6) Total Bilirubin 0.3mg/dL (0.0-1.2) Aspartate Amino Transf (AST/SGOT) 17U/L (0-50) Alanine Aminotransferase (ALT/SGPT) 12U/L (0-44) Alkaline Phosphatase 70U/L (25-160) Total Creatine Kinase 192U/L (21-232) Total Protein 5.0g/dL (6.4-8.4) Albumin 2.7g/dL (3.4-5.0) Microbiology Results Blood and urine cultures are pending. Discharge Medications Discharge Medications Alfuzosin ER (Uroxatral) 10 Mg Tab.sr.24h 10 MG PO HS (Reported) Amitriptyline (Amitriptyline) 75 Mg Tablet 75 MG PO HS Prescribed by: BRENT COOPER DO Cefdinir (Cefdinir) 300 Mg Capsule 300 MG PO BID Prescribed by: FERNANDA COLINDRES MD Docusate Calcium (Stool Softener) 240 Mg Capsule 240 MG PO DAILY (Reported) Gabapentin (Neurontin) 100 Mg Capsule 100 MG PO PM Prescribed by: BRENT COOPER DO Tolterodine Tartrate ER (Detrol LA) 2 Mg Capsule 2 MG PO DAILY (Reported) As needed Dutasteride (Avodart) 0.5 Mg Capsule 0.5 MG PO DAILY PRN PRN prn (Reported) Followup Plan Disposition: Physical therapy spent a considerable amount time with the patient today and has clearly recommended that the patient go to a retirement facility as he is not safe for home. However, the patient's adamantly refuses for the patient to go to a retirement facility as she has had a bad experience, in her opinion, in the past. Despite the fact that states that Adult Protective Services has been called on her and her 4 times including this admission. She is determined to take the patient home with home health and home physical therapy. Even though she admits that when the patient falls, she is unable to pick the patient patient up off the floor. She also admits that the patient has fallen thousands of times in the last 3 years. As the patient's continues to refuse to allow the patient to be transferred to a retirement facility and the patient is not receiving any care here at [facility] but he cannot receive at home, the patient will be discharged home today in the care of his . Discharge Diet: Heart Healthy Discharge Activity: Outpatient Physical Therapy (As per outpatient PT) Follow-up Provider: Price Godinez MD Follow-up with PCP in: 1 week (Patient needs Urology referral.) Provider: Efren Buchanan MD Follow-up in: 2 weeks Time spent Time spent on discharging this patient was greater than 35 minutes, over half of which was involved in counseling and coordination of care. Maxx Colindres MD May 18, 2017 00:07
== END 2017-05-17 16:46 | disposition home health service (06) | DRG 565 ==
LOC: SED 18:30 → EDBD 18:30 → EDUNIT# 18:30 → MPC 21:47
PROVIDERS: ADMIT Internal Medicine; ATTEND Internal Medicine Infectious Disease
PROC: 4A00X4Z Measurement of Central Nervous Electrical Activity, External Approach (ICD-10-PCS; principal; 2017-05-16)
DX: T79.6XXA Traumatic ischemia of muscle, initial encounter (principal); N39.0 Urinary tract infection, site not specified; N13.39 Other hydronephrosis; I27.82 Chronic pulmonary embolism; Z66 Do not resuscitate; I10 Essential (primary) hypertension; F03.90 Unspecified dementia, unspecified severity, without behavioral disturbance, psychotic disturbance, mood disturbance, and anxiety; I48.0 Paroxysmal atrial fibrillation; K56.41 Fecal impaction; G62.9 Polyneuropathy, unspecified; I25.10 Atherosclerotic heart disease of native coronary artery without angina pectoris; R53.81 Other malaise; W01.0XXA Fall on same level from slipping, tripping and stumbling without subsequent striking against object, initial encounter; Z79.01 Long term (current) use of anticoagulants; Z91.81 History of falling; Y93.9 Activity, unspecified; Y92.003 Bedroom of unspecified non-institutional (private) residence as the place of occurrence of the external cause; Z85.46 Personal history of malignant neoplasm of prostate; Z87.891 Personal history of nicotine dependence